=== PATIENT | male | born 1980 | race Caucasian/White ===

== ENCOUNTER 2023-04-30 14:12 | Inpatient (IN) | payer MEDICAID, SELFPAY ==
[2023-04-30] VITALS (11 sets, daily range): BP systolic 123–153; BP diastolic 77–97; PULSE 96–116; RESP 13–19; TEMP 37.1; O2SAT 97–99; BMI 26.4
--- NOTE | 2023-04-30 14:12 | CT_ITS ---
PROCEDURE: CT GUIDED percutaneous cholecystostomy placement. DATE: April 30, 2023. INDICATION: Male, 43 years old. Acute cholecystitis. PHYSICIAN: Shashi Lobato M.D. RADIATION DOSAGE (If Supplied By Facility): CTDIvol = ( 20 ) mGy, DLP = ( 591.23 ) mGycm. Individualized dose optimization techniques were utilized. PROCEDURE: The risks, benefits, and alternatives to the procedure were explained to the patient. The specific risk of hemorrhage requiring further treatment or intervention was detailed and accepted. Follow-up instructions were discussed with the patient as well. Written informed consent was obtained. The patient was brought into the CT suite and placed in the supine position. . An appropriate entry site was identified. The overlying skin was prepped and draped in the usual sterile fashion. 1% lidocaine was administered subcutaneously for local anesthesia. Conscious sedation was performed. The patient received 2 mg of Versed and 100 mcg of fentanyl intravenously. Conscious sedation was started at 3:15 PM and terminated at 3:40 PM. The patient was independently monitored by the department nurse. Under CT guidance, a 8 Citizen [place] percutaneous cholecystostomy tube was placed within the gallbladder lumen. 50 cc of dark brown fluid was aspirated. The specimens were then placed in the appropriate fluid and transported to the laboratory for analysis. Hemostasis was obtained. The patient tolerated the procedure well without immediate complications. CT/CT Guidance Abscess Drg w/Cath IMPRESSION: Successful CT guided percutaneous colostomy utilizing an 8 [place] percutaneous drainage catheter., as described above. The patient tolerated the procedure well. Conscious sedation protocol was followed. Electronically Signed: Shashi Lobato MD at 8:34 EST ,
[2023-04-30 15:01] LABS: International Normalized Ratio 1.7; Partial Thromboplast Time 37.4 Seconds (24.1-36.2); Prothrombin Time (Protime)PT. 19.8 SECONDS (11.7-14.9)
[2023-04-30] MEDS: Midazolam 2 MG/2 ML Syringe IV (15:15)
[2023-04-30] MEDS: 0.9% Normal Saline (1000mL) 1,000 ML 100 ML IV (15:15)
[2023-04-30] MEDS: fentaNYL 100 MCG/2 ML Ampul IV ×3 (15:18→15:40)
--- NOTE | 2023-04-30 15:25 | HP.PCM.SX_ITS ---
HPI - General General Date of Admission: 04/30/23 HPI Narrative BRANDY KISER, is a 43 M who presents with right upper quadrant pain of 4 days duration. The patient was transferred from outside hospital. Patient reports that he has been having pain for 4 days in the right upper quadrant and had an episode similar to this a year ago for which she was seen in the emergency room but never followed up. Patient reports nausea as well as vomiting. He says he is needing her drink anything in 4 days. He also reports chills. PFSH Allergy/AdvReac Type Severity Reaction Status Date / Time No Known Allergies Allergy Verified 04/30/23 14:13 Social History Smoking Status: Current every day smoker tobacco type: cigarettes ROS Constitutional Constitutional: Reports chills and fatigue; Denies fever(s) Eyes Eyes: Denies blurry vision ENT HEENT: Denies abnormal hearing Cardiovascular Cardiovascular: Denies chest pain Respiratory/Chest Respiratory/Chest: Denies cough or dyspnea Gastrointestinal Gastrointestinal: Reports abdominal pain, nausea and vomiting; Denies constipation Genitourinary Genitourinary: Denies change in urinary stream Musculoskeletal Musculoskeletal: Denies abnormal gait or back pain Integumentary Integumentary: Denies jaundice Neurologic Neurologic: Denies abnormal gait Psychiatric Psychiatric: Denies anxiety Hematologic/Lymphatic Hematologic/Lymphatic: Denies easy bleeding Vital Signs Vital Signs Vital Signs: 04/30/23 14:52 Respiratory Effort Normal Non-Labored Respiratory Pattern Normal Physical Exam Const oriented x3 and no apparent distress Resp normal respiratory effort Cardio regular rate and regular rhythm GI soft to palpation Palpation: tender RUQ Extremity normal to inspection Results Lab / Micro Data Labs: Laboratory Results - last 24 hr 04/30/23 14:44: PT 19.8 H, INR 1.7, APTT 37.4 H Assessment & Plan Assessment/Plan (1) Acute cholecystitis due to biliary calculus: PLAN: The patient had a CT scan which showed a lot of inflammation in the right upper quadrant. He also had an ultrasound that showed cholelithiasis. Patient had a white count of 25 this morning at outside hospital and was then transferred here due to insurance reasons. I discussed his diagnosis with him. There is a lot of inflammation and this has been going on for over 4 days now. The patient was very hesitant about surgery and did not want surgery now and would like it electively. I informed him that the only way I would do elective surgery would be if he went home on oral antibiotics and had a cholecystostomy tube placed to cool down the gallbladder. He wanted just antibiotics and to come back electively but I do not think that would be safe. I did offer him laparoscopic cholecystectomy but the patient is turning that down at this time. I discussed cholecystostomy tube with him and I discussed that he would have this drain in place for at least a month. Patient understands and wanted cholecystostomy tube placed. I will have this ordered and placed by radiology. I will start clear liquids afterwards and keep him on IV antibiotics. Recheck labs in the morning. Morris Gonzales MD Pager: [facility] [address] [place] [address], [address] [place] [address] Office:
[2023-04-30] MEDS: Lidocaine 2% (20 ml mdv) 20 ML Vial INFILT (15:30)
[2023-04-30] MEDS: Piperacil/Tazobactam 3.375 GM in 0.9% Normal Saline (50mL MB+) 50 ML IV ×2 (16:53→22:44)
[2023-04-30] MEDS: 0.9% Normal Saline (250mL Bag) 250 ML 15 ML IV (23:22)
[2023-05-01 02:19] VITALS: BP 136/86; PULSE 102; RESP 16; TEMP 36.7; O2SAT 99
[2023-05-01] MEDS: Morphine 2 MG/ML Syringe IV ×2 (02:22→18:24)
[2023-05-01] MEDS: Piperacil/Tazobactam 3.375 GM in 0.9% Normal Saline (50mL MB+) 50 ML IV ×3 (05:46→21:28)
[2023-05-01] MEDS: 0.9% Normal Saline (1000mL) 1,000 ML 100 ML IV (05:46)
[2023-05-01 07:09] LABS: Absolute Lymphocyte Count 1.23 X10^3/uL (0.83-4.51); Absolute Neutrophil Count 9.5 X10^3/uL (2.0-7.7); Basophil# 0.06 X10^3/uL; Basophil% 0.5 % (0-1); Eosinophil# 0.25 X10^3/uL; Eosinophils% 2.1 % (0-5); Hematocrit 40.8 % (40-54); Hemoglobin 13.7 g/dL (13.0-16.5); Lymphocyte # 1.23 X10^3/ul (0.83-4.51); Lymphocyte % 10.1 % (19-41); Mean Corp Hgb Conc 33.6 g/dL (32-36); Mean Corpuscular Hgb 31.6 pg (27.0-32.0); Monocyte# 1.05 X10^3/uL; Monocyte% 8.6 % (0-10); NRBC Flagged by Analyzer 0 % (0-5); Neutrophil % 77.9 % (47-70); Platelet Count 293 K/mm3 (150-450); RBC Distribution Width CV 12.5 % (11.6-14.6); RBC Distribution Width SD 43.3 fl (35.1-43.9); Red Blood Count 4.34 M/mm3 (4.6-6.2); White Blood Count 12.2 K/mm3 (4.4-11.0)
[2023-05-01 07:50] LABS: ALB/GLOB Ratio 0.6 RATIO (0.9-2.4); AST(SGOT) 293 U/L (15-37); Alanine Aminotransfer ALT/SGPT 662 U/L (16-61); Albumin, Serum 2.6 g/dL (3.2-5.0); Alkaline Phosphatase 206 U/L (45-117); Anion Gap 6 (5-15); BUN 9 mg/dL (7-18); BUN/Creat Ratio 11.8 RATIO (10-20); Calcium,Total 8.6 mg/dL (8.5-10.1); Chloride 104 mmol/L (98-107); Creatinine, Serum 0.76 mg/dL (0.70-1.30); EST Glomerular Filtration Rate 118 mL/min (>60); Est Glom Filt Rate - Afr Amer 143 mL/min (>60); Estimated Creatinine Clearance 136.14 ml/min; Globulin 4.2 g/dL (2.2-4.2); Glucose 92 mg/dL (74-106); Potassium 3.9 mmol/L (3.5-5.1); Protein, Total 6.8 g/dL (6.4-8.2); Sodium Level 136 mmol/L (136-145)
[2023-05-01 09:00] VITALS: BP 130/78; PULSE 91; RESP 14; TEMP 37.1; O2SAT 97
--- NOTE | 2023-05-01 09:43 | MRI_ITS ---
STUDY: MRI ABDOMEN WITHOUT CONTRAST REASON FOR EXAM: Male, 43 years old. mrcp, ABDOMINAL PAIN, DRAIN TUBE IN PLACE TECHNIQUE: Standardized fat and water weighted pulse sequences were obtained in all 3 orthogonal planes. COMPARISON: CT 04/29/2023 FINDINGS: Tiny bilateral pleural effusions with some bibasilar atelectasis. Cardiomegaly with small pericardial effusion. Small amount of ascites. Normal liver. Percutaneous cholecystostomy tube. Small stones in the dependent portion of the gallbladder. Gallbladder wall thickening and surrounding edema consistent with acute cholecystitis. Normal spleen. Normal pancreas. Normal bilateral adrenal glands. Normal right kidney. Normal left kidney. Normal visualized stomach. Normal small intestine. Normal colon. The appendix is visualized and appears normal. Normal abdominal aorta. Normal inferior vena cava. Normal retroperitoneum. Normal abdominal wall. Normal osseous structures. MRI/Abdomen without Contrast IMPRESSION: Cholelithiasis with acute cholecystitis with a percutaneous cholecystostomy tube. Electronically Signed: Escobar Dubose MD at 19:28 EST ,
--- NOTE | 2023-05-01 10:31 | PN.SURG_ITS ---
Subjective Subjective Patient had cholecystostomy tube placed yesterday afternoon. He tolerated clears after this. Objective Data Objective Data Vital Signs: Vital Signs Temp Pulse Resp BP Pulse Ox O2 Del Method 98.7 F 91 14 130/78 H 97 Room Air 05/01/23 09:00 05/01/23 09:00 05/01/23 09:00 05/01/23 09:00 05/01/23 09:00 05/01/23 09:00 Oxygen Delivery Method Room Air Weight: 195 lb 5.273 oz Body Mass Index (BMI) 26.4 Intake & Output: Intake and Output for Last 24 Hours 04/29/23 04/30/23 05/01/23 23:59 23:59 23:59 Intake Total 150.5 / 150.5 1350 / 1350 Output Total 50 / 50 Balance 100.5 / 100.5 1350 / 1350 Lab / Micro Data 05/01/23 06:40 05/01/23 06:40 Labs: Laboratory Results - last 24 hr 04/30/23 14:44: PT 19.8 H, INR 1.7, APTT 37.4 H 05/01/23 06:40: WBC 12.2 H, RBC 4.34 L, Hgb 13.7, Hct 40.8, MCV 94.0, MCH 31.6, MCHC 33.6, RDW Std Deviation 43.3, RDW Coeff of Jenni 12.5, Plt Count 293, MPV 10.0, Immature Gran % (Auto) 0.800, Neut % (Auto) 77.9 H, Lymph % (Auto) 10.1 L, Gregory % (Auto) 8.6, Eos % (Auto) 2.1, Baso % (Auto) 0.5, Absolute Neuts (auto) 9.5 H, Absolute Lymphs (auto) 1.23, Nucleated RBC % 0, Sodium 136, Potassium 3.9, Chloride 104, Carbon Dioxide 26.0, Anion Gap 6, BUN 9, Creatinine 0.76, Estim Creat Clear Calc 136.14, Est GFR (MDRD) Af Amer 143, Est GFR (MDRD) Non-Af 118, BUN/Creatinine Ratio 11.8, Glucose 92, Calcium 8.6, Total Bilirubin 2.80 H, AST 293 H, ALT 662 H, Alkaline Phosphatase 206 H, Total Protein 6.8, Albumin 2.6 L, Globulin 4.2, Albumin/Globulin Ratio 0.6 L Radiography Diagnostic Testing: Radiology Impression Abscess Drainage CT 04/30/23 14:12 IMPRESSION: Successful CT guided percutaneous colostomy utilizing an 8 [place] percutaneous drainage catheter., as described above. The patient tolerated the procedure well. Conscious sedation protocol was followed. Electronically Signed: Shashi Lobato MD at 8:34 EST , Physical Exam Const oriented x3 Resp normal respiratory effort GI soft to palpation Palpation: tender Assessment & Plan Assessment/Plan (1) Acute cholecystitis due to biliary calculus: PLAN: The patient had cholecystostomy tube placed yesterday afternoon. The patient's white count decreased today. His LFTs however increased. There is not any bile coming out of the drain either. I would like to order an MRCP today. I will also keep him overnight and recheck LFTs in the morning. Morris Gonzales MD Pager: [facility] [address] [place] [address], [address] [place] [address] Office:
[2023-05-01 14:00] VITALS: BP 121/75; PULSE 87; RESP 14; TEMP 36.8; O2SAT 96
[2023-05-01] MEDS: 0.9% Saline Lock 10 ML Syringe IV (18:24)
[2023-05-01 20:37] VITALS: BP 143/84; PULSE 84; RESP 16; TEMP 37.1; O2SAT 100
[2023-05-02] MEDS: 0.9% Normal Saline (1000mL) 1,000 ML 100 ML IV (00:25)
[2023-05-02 03:35] VITALS: BP 128/70; PULSE 85; RESP 16; TEMP 37.1; O2SAT 98
[2023-05-02] MEDS: Piperacil/Tazobactam 3.375 GM in 0.9% Normal Saline (50mL MB+) 50 ML IV (05:24)
[2023-05-02 07:53] VITALS: O2SAT 93
[2023-05-02 08:00] VITALS: BP 119/76; PULSE 77; RESP 14; TEMP 36.8; O2SAT 97
[2023-05-02 08:46] LABS: Absolute Lymphocyte Count 1.41 X10^3/uL (0.83-4.51); Absolute Neutrophil Count 5.2 X10^3/uL (2.0-7.7); Basophil# 0.08 X10^3/uL; Eosinophil# 0.23 X10^3/uL; Hematocrit 38.9 % (40-54); Lymphocyte # 1.41 X10^3/ul (0.83-4.51); Lymphocyte % 18.4 % (19-41); Mean Corp Hgb Conc 33.4 g/dL (32-36); Mean Corpuscular Hgb 31.4 pg (27.0-32.0); Monocyte# 0.69 X10^3/uL; NRBC Flagged by Analyzer 0 % (0-5); Neutrophil # 5.18 X10^3/uL (2.7-7.7); Neutrophil % 67.8 % (47-70); Platelet Count 321 K/mm3 (150-450); RBC Distribution Width CV 12.7 % (11.6-14.6); RBC Distribution Width SD 44.3 fl (35.1-43.9); Red Blood Count 4.14 M/mm3 (4.6-6.2); White Blood Count 7.7 K/mm3 (4.4-11.0)
[2023-05-02 09:11] LABS: ALB/GLOB Ratio 0.6 RATIO (0.9-2.4); AST(SGOT) 205 U/L (15-37); Alanine Aminotransfer ALT/SGPT 504 U/L (16-61); Albumin, Serum 2.4 g/dL (3.2-5.0); Alkaline Phosphatase 233 U/L (45-117); Anion Gap 6 (5-15); BUN 8 mg/dL (7-18); BUN/Creat Ratio 12.2 RATIO (10-20); Calcium,Total 8.2 mg/dL (8.5-10.1); Chloride 106 mmol/L (98-107); Creatinine, Serum 0.66 mg/dL (0.70-1.30); EST Glomerular Filtration Rate 140 mL/min (>60); Est Glom Filt Rate - Afr Amer 170 mL/min (>60); Estimated Creatinine Clearance 156.77 ml/min; Globulin 4.1 g/dL (2.2-4.2); Glucose 95 mg/dL (74-106); Potassium 3.8 mmol/L (3.5-5.1); Protein, Total 6.5 g/dL (6.4-8.2); Sodium Level 138 mmol/L (136-145)
--- NOTE | 2023-05-02 10:00 | PCM.PN.SRG ---
Subjective Subjective Patient reports his pain is improving. He had no issues overnight. Objective Data Objective Data Vital Signs: Vital Signs Temp Pulse Resp BP Pulse Ox O2 Del Method 98.3 F 77 14 119/76 97 Room Air 05/02/23 08:00 05/02/23 08:00 05/02/23 08:00 05/02/23 08:00 05/02/23 08:00 05/02/23 08:00 Oxygen Delivery Method Room Air Weight: 195 lb 5.273 oz Body Mass Index (BMI) 26.4 Intake & Output: Intake and Output for Last 24 Hours 04/30/23 05/01/23 05/02/23 23:59 23:59 23:59 Intake Total 150.5 / 150.5 2072. / 2072.33 601.67 / 601.67 Output Total 50 / 50 Balance 100.5 / 100.5 2072. / 2072. 601.67 / 601.67 Lab / Micro Data 05/02/23 08:10 05/02/23 08:10 Labs: Laboratory Results - last 24 hr 05/02/23 08:10: WBC 7.7, RBC 4.14 L, Hgb 13.0, Hct 38.9 L, MCV 94.0, MCH 31.4, MCHC 33.4, RDW Std Deviation 44.3 H, RDW Coeff of Jenni 12.7, Plt Count 321, MPV 10.0, Immature Gran % (Auto) 0.800, Neut % (Auto) 67.8, Lymph % (Auto) 18.4 L, [place] % (Auto) 9.0, Eos % (Auto) 3.0, Baso % (Auto) 1.0, Absolute Neuts (auto) 5.2, Absolute Lymphs (auto) 1.41, Nucleated RBC % 0, Sodium 138, Potassium 3.8, Chloride 106, Carbon Dioxide 26.0, Anion Gap 6, BUN 8, Creatinine 0.66 L, Estim Creat Clear Calc 156.77, Est GFR (MDRD) Af Amer 170, Est GFR (MDRD) Non-Af 140, BUN/Creatinine Ratio 12.2, Glucose 95, Calcium 8.2 L, Total Bilirubin 1.50 H, AST 205 H, ALT 504 H, Alkaline Phosphatase 233 H, Total Protein 6.5, Albumin 2.4 L, Globulin 4.1, Albumin/Globulin Ratio 0.6 L Radiography Diagnostic Testing: Radiology Impression Abdomen MRI 05/01/23 09:43 IMPRESSION: Cholelithiasis with acute cholecystitis with a percutaneous cholecystostomy tube. Electronically Signed: Escobar Dubose MD at 19:28 EST , Physical Exam Const oriented x3 and no apparent distress Resp normal respiratory effort GI soft to palpation Palpation: tender Assessment & Plan Assessment/Plan (1) Acute cholecystitis due to biliary calculus: PLAN: The patient had elevated LFTs yesterday. He had an MRCP yesterday afternoon that did not show any dilation or stones in the bile duct. It showed that the drain is in the gallbladder. The patient reports improvement in pain and no nausea vomiting overnight. I will advance him to a regular diet today and if he tolerates this I will discharge him home on oral antibiotics. The patient has normal white count today and his LFTs are downtrending. Morris Gonzales MD Pager: [facility] [address] [place] [address], [address] [place] [address] Office:
--- NOTE | 2023-05-02 11:43 | CASEMGMT ---
TAZ JOHNSON Assessment: Face to Face with pt for initial transition planning/care coordination assessment. RN ELIZABETH introduced self and role at [facility], pt voices understanding and consents to assessment. Pt is A&O x4 and answers all questions appropriately at this time. Pt lying in bed in no distress. Care providers, pharmacy, and demographics verified/updated. Admitting Dx: acute cholecystitis PCP:Pt denies. Pt declines a list of local healthcare providers. Specialists:Denies Preferred Pharmacy:[facility] Insurance: [employer] Prescription Benefit: yes LNOK: Tierra Mims, mother Living Arrangements: Pt lives with parents in a two story home with no steps to enter. Pt reports he is I in ADL's and denies concerns at home. Transportation: Pt drives self and denies concerns with transportation. DME:shower seat, pt states he has DME available if needed HHC/SNF: Pt denies hx of Pt states no concerns with going home at time of dc. Pt states he will be able to care for his drain. Pt states no further concerns/needs. CM to follow. Advised pt to ask CM if any further question/concerns/needs arise, voices understanding. Pt Goal: Home Plan: Home
[2023-05-02] MEDS: metroNIDAZOLE 500 MG Tablet PO (15:16)
--- NOTE | 2023-05-02 15:24 | PCM.DC.SUM ---
Providers Date of Admission: 05/01/23 Primary Care Physician: No Primary Care Phys Reason For Visit: ACUTE CHOLECYSTITIS Diagnosis Discharge Diagnosis (1) Acute cholecystitis due to biliary calculus: Status: Acute Code(s): K80.00 - Calculus of gallbladder with acute cholecystitis without obstruction Plan: The patient had elevated LFTs yesterday. He had an MRCP yesterday afternoon that did not show any dilation or stones in the bile duct. It showed that the drain is in the gallbladder. The patient reports improvement in pain and no nausea vomiting overnight. I will advance him to a regular diet today and if he tolerates this I will discharge him home on oral antibiotics. The patient has normal white count today and his LFTs are downtrending. Morris Gonzales MD Pager: [facility] [address] [place] [address], [address] [place] [address] Office: Medications at Discharge Home Medications acetaminophen 325 mg tablet 650 mg (2 x 325 mg) PO Q4H PRN PRN Pain 1-10 Or Fever #0 tabs 05/02/23 amoxicillin 500 mg-potassium clavulanate 125 mg tablet (Augmentin) 1 tab PO BID 10 days #20 tabs 05/02/23 ibuprofen 600 mg tablet 600 mg PO Q6H PRN PRN Pain 1-10 Or Fever #0 tabs 05/02/23 oxycodone 5 mg tablet 5 - 10 mg (1 - 2 x 5 mg) PO Q4H PRN PRN Pain Score 4-10 5 days #20 tabs 05/02/23 Hospital Course Summary of Care Provided Hospital Course: Patient was transferred from outside hospital severe acute cholecystitis. The following day he had percutaneous cholecystostomy tube placed. The morning after this he was feeling well but his liver enzymes increased. He had an MRCP performed which did not show any stones in the duct. The following day he was transitioned to oral antibiotics and a regular diet and discharged home with cholecystostomy tube in place with plans for interval cholecystectomy in the future. Weight / BMI Weight Weight: 195 lb 5.273 oz Body Mass Index (BMI) 26.4 ABG / Lab / Microbiology Data 05/02/23 08:10 05/02/23 08:10 Laboratory: Laboratory Results - last 24 hr 05/02/23 08:10: WBC 7.7, RBC 4.14 L, Hgb 13.0, Hct 38.9 L, MCV 94.0, MCH 31.4, MCHC 33.4, RDW Std Deviation 44.3 H, RDW Coeff of Jenni 12.7, Plt Count 321, MPV 10.0, Immature Gran % (Auto) 0.800, Neut % (Auto) 67.8, Lymph % (Auto) 18.4 L, [place] % (Auto) 9.0, Eos % (Auto) 3.0, Baso % (Auto) 1.0, Absolute Neuts (auto) 5.2, Absolute Lymphs (auto) 1.41, Nucleated RBC % 0, Sodium 138, Potassium 3.8, Chloride 106, Carbon Dioxide 26.0, Anion Gap 6, BUN 8, Creatinine 0.66 L, Estim Creat Clear Calc 156.77, Est GFR (MDRD) Af Amer 170, Est GFR (MDRD) Non-Af 140, BUN/Creatinine Ratio 12.2, Glucose 95, Calcium 8.2 L, Total Bilirubin 1.50 H, AST 205 H, ALT 504 H, Alkaline Phosphatase 233 H, Total Protein 6.5, Albumin 2.4 L, Globulin 4.1, Albumin/Globulin Ratio 0.6 L Radiography Diagnostic Testing: Radiology Impression Abdomen MRI 05/01/23 09:43 IMPRESSION: Cholelithiasis with acute cholecystitis with a percutaneous cholecystostomy tube. Electronically Signed: Escobar Dubose MD at 19:28 EST , D/C Instructions Discharge Diet: Light diet - advance as tolerated Discharge Activity: Return to Normal Activity Lifting Restrictions: 15 lbs for 1 week Call your doctor if your incision/area has: Continuous Slow Oozing, Sudden Increased Bleeding, Increased Pain/ Swelling, Increased Redness, Foul Smelling Discharge and Swelling at the incision site Call your doctor if you observe: Fever of 101 or Higher Change Dressing in: As needed Cleanse incision/area with: Soap & Water Please Follow Up With: Morris Gonzales MD When: Please call to schedule 2 week follow up appointment. [phone] Meaningful Use Info Meaningful Use Diagnoses (Choose all that apply): None applicable Discharge Plan Admission Admit Date/Time: 05/01/23 16:45 Attending Provider: Morris Gonzales Primary Care Provider: Care Physician,No Primary Instructions Patient Instructions: Santos Graf Drain Tube Dc, Post Op Drain Emptying Steps Discharge Orders/Prescriptions Prescriptions: New acetaminophen 325 mg Tablet 650 mg PO Q4H PRN PRN (Reason: Pain 1-10 Or Fever) Qty: 0 0RF ibuprofen 600 mg Tablet 600 mg PO Q6H PRN PRN (Reason: Pain 1-10 Or Fever) Qty: 0 0RF amoxicillin-pot clavulanate [Augmentin] 500-125 mg tablet 1 tab PO BID 10 Days Qty: 20 0RF oxycodone 5 mg Tablet 5 - 10 mg PO Q4H PRN PRN (Reason: Pain Score 4-10) 5 Days Qty: 20 0RF Referrals / Follow Up: Care Physician,No Primary [Primary Care Provider] - Disposition Disposition (needs filled in before D/C Order can be placed): Home, Self Care
--- NOTE | 2023-05-02 15:25 | NURSING ---
PT REFUSING CIPRO BECAUSE HIS MOM SAID IT KILLS ALL KINDS OF STUFF. TALKING TO HIS MOM, SHE SAID SOMEONE HAD TOLD HER NOT TO TAKE CIPRO BECAUSE OF THE SIDE EFFECTS, THEN WENT ON TO SAY THAT SHE HAD BAD SIDE EFFECTS FROM AN ANTIBIOTIC BUT WASNT SURE WHAT IT WAS. THEY ARE REQUESTING A SUBSITUTE FOR THE CIPRO. THIS NURSE EXPLAINED THAT ALL MEDS CAN HAVE SIDE EFFECTS AND EVERYONE IS DIFFERENT, IF HE IS WORRIED ABOUT SIDE EFFECTS, TAKING IT IN THE HOSPITAL WOULD BE THE TIME. CIPRO HANDOUT GIVEN AND OFFERED TO HAVE PHARMACY COME UP AND TALK TO THEM ABOUT THE MED. THE OTHER OPTION, AFTER TALKING TO DR KUMAR, AND NOT HIS FIRST CHOICE AND NOT RECOMMENDED D/T GREATER POSSIBILITY OF SIDE EFFECTS, IS AUGMENTIN. PTS MOTHER STILL PREFERS TO GO WITH THE AUGMENTIN, DR KUMAR AWARE.
[2023-05-02 15:30] VITALS: BP 131/86; PULSE 79; RESP 15; TEMP 36.6; O2SAT 100
== END 2023-05-02 16:50 | disposition home or self-care (01) | DRG 446 ==
PROVIDERS: Admitting Provider Surgery; Referring Provider Surgery; Visit Provider Surgery
DX: K80.00 Calculus of gallbladder with acute cholecystitis without obstruction (principal); F17.210 Nicotine dependence, cigarettes, uncomplicated
CPT/HCPCS: 36415; 74181; 75989; 80053; 85025; 85610; 85730; 99156; J7030; J7050; A4216

== ENCOUNTER 2023-06-25 08:00 | Outpatient (CLI) | payer MEDICAID, SELFPAY ==
--- NOTE | 2023-06-25 06:34 | EKG12_ITS ---
Test Reason : PRE-OP Blood Pressure : / mmHG Vent. Rate : 099 BPM Atrial Rate : 099 BPM P-R Int : 134 ms QRS Dur : 106 ms QT Int : 364 ms P-R-T Axes : 061 094 051 degrees QTc Int : 467 ms Normal sinus rhythm Normal ECG No previous ECGs available Confirmed by REN GABRIEL, MAYURI ([id number]), editor book SUSANA ALBERT ([id number]) on 06/27/2023 9:33:51 AM Referred By: STACY Confirmed By:MAYURI MCCLURE MD
--- NOTE | 2023-07-05 11:52 | EKG12_ITS ---
Test Reason : PRE-OP Blood Pressure : / mmHG Vent. Rate : 091 BPM Atrial Rate : 091 BPM P-R Int : 136 ms QRS Dur : 104 ms QT Int : 364 ms P-R-T Axes : 066 098 064 degrees QTc Int : 447 ms Normal sinus rhythm Normal ECG When compared with ECG of 25-JUN-2023 06:34, No significant change was found Confirmed by REN GABRIEL, MAYURI ([id number]), loan expeditor SARAH VALLES ([id number]) on 07/06/2023 1:35:52 PM Referred By: Morris Gonzales Confirmed By:MAYURI MCCLURE MD
--- OUTSIDE RECORDS SUMMARY | 2023-08-15 23:00 | XMS RPT_ITS | CCD ---
Author Name Unknown Address [address] [place] [address] Organization [facility] Care Team Providers Care Recycling Center Operator Name Role Phone CALOS DUGAN Attending Unavailable CALOS DUGAN Primary Care Unavailable CALOS DUGAN Admitting Unavailable Results Test Name Value Interpretation Reference Range Facil ity Encounters Encounter Date Encounter Type Care Provider Facility Start: 04-29-2023 End: 04-30-2023 ambulatory CALOS DUGAN [facility] Procedures Date Procedure Procedure Detail Performing Clinician Start: 04-29-2023 Urinalysis CALOS Candelario Payers Date Payer Category Payer Unknown [id number] Unknown [id number] History and physical note 05-19-2023 Note Date & Type Note Facility 05-19-2023 [facility] HISTORY & PHYSICAL NAME ACCOUNT SEX AGE ADMIT DISCHARGE PT MED. RECORD# NUMBER DATE DATE TYPE RASHEL [id number] M 43 04/29/23 1 BRANDY [id number] ROOM: [facility] DATE OF : [birth year] DICTATING PHYSICIAN: Eusebio Scott CHIEF COMPLAINT: Abdominal pain, right upper quadrant. HISTORY OF PRESENT ILLNESS: The patient is a 43-year-old male who presents to [facility] for a 4 day history of right [...] wanting to pr (more content not included)... [facility] Discharge summary note 05-07-2023 Note Date & Type Note Facility 05-07-2023 [facility] DISCHARGE SUMMARY/TRANSFER NOTE NAME ACCOUNT SEX AGE ADMIT DISCHARGE PT MED. RECORD# NUMBER DATE DATE TYPE BRANDY KISER [id number] M 43 04/29/23 2 [id number] ROOM: 312 DATE OF : 1980 ATTENDING [...] to have insurance, which was not in [facility] panel. This morning, his white blood cell count has decreased somewhat, but is still 24,800. His initial liver panel and lipase were all within normal range. Final report on the CAT scan is pending. Ultrasound had shown cholelithiasis, gallbladder sludge, and thickened gallbladder wall, see reports. DISCHARGE INSTRUCTIONS/PLAN: He wishes to be transferred to [facility], which is in his provider panel, and I have discussed this patient with Dr. Gonzales, who had suggested just simply sending him directly to the emergency room at [facility], and then care will be provided. We will send accompanying hospital notes, ER notes, laboratories, CT, and ultrasound to accompany the patient. He had been maintained on intravenous antibiotics here. The patient appears to have stabilized, but needs further management medically and surgically. Dictated By: Calos Dugan MD 04/30/23 10:21 JOB #: [id number] Transcribed By: am 04/30/23 10:39 Electronically signed by: E-Sign Dr. Calos Dugan MD 05/07/23 10:30 Page 1 of 2 [facility]AND[facility] Discharge Summary/Transfer Note BRANDY KISER : 1980 Page 2 of 2 KISERBRANDY COHEN Discharge Summary/Transfer Note [facility] Summary Purpose Family History No Family [...] BE BASED ON THE PRIMARY CLINICAL RECORDS. [facility]. provides no warranty or guarantee of the accuracy or completeness of information in this document.
== END 2023-06-25 09:00 | disposition home or self-care (01) ==
LOC: PAT 08-15 13:41
PROVIDERS: Visit Provider Surgery
DX: Z01.818 Encounter for other preprocedural examination (principal)
CPT/HCPCS: 93005

== ENCOUNTER → 2023-07-20 | Outpatient (CLI) | payer MEDICAID, SELFPAY ==
--- OUTSIDE RECORDS SUMMARY | 2023-06-25 06:08 | XMS RPT_ITS | CCD ---
Author Name Unknown Address [address] [place] [address] Organization [facility] Care Team Providers Care Machine Burrer Name Role Phone CALOS DUGAN Attending Unavailable CALOS DUGAN Primary Care Unavailable CALOS DUGAN Admitting Unavailable Results Test Name Value Interpretation Reference Range Facil ity Encounters Encounter Date Encounter Type Care Provider Facility Start: 04-29-2023 End: 04-30-2023 ambulatory CALOS DUGAN [facility] Procedures Date Procedure Procedure Detail Performing Clinician Start: 04-29-2023 Urinalysis CALOS Candelario Payers Date Payer Category Payer Unknown [id number] Unknown [id number] History and physical note 05-19-2023 Note Date & Type Note Facility 05-19-2023 [facility] HISTORY & PHYSICAL NAME ACCOUNT SEX AGE ADMIT DISCHARGE PT MED. RECORD# NUMBER DATE DATE TYPE RASHEL [id number] M 43 04/29/23 1 BRANDY [id number] ROOM: [facility] DATE OF : 78 DICTATING PHYSICIAN: Eusebio Scott CHIEF COMPLAINT: Abdominal pain, right upper quadrant. HISTORY OF PRESENT ILLNESS: The patient is a 43-year-old male who presents to [facility] for a 4 day history of right upper quadrant abdominal pain. The patient states that he had an episode of this last year, and was seen here, but his pain improved and he was released and never had any further issues and so he did not followup with anyone. When asked why the patient did not come in sooner this time, the patient states it was because the pain was in a different place and states that the pain last year was in the epigastric, substernal area, and this time the pain is in the right upper abdomen. He denies eating anything greasy or spicy or anything much at all on that precipitated this. He has only had soup and liquids over the last several days. He has not been sleeping well because of the pain. The patient denies eating anything today, but did have some apple juice and water this morning. The patient presented today to the emergency department, and was found to have acute abdominal pain and was admitted for this reason. PAST MEDICAL HISTORY: The patient denies any other problems except for the above in the history of present illness. PAST SURGICAL HISTORY: Denies. MEDICATIONS: Denies. ALLERGIES: No known drug allergies. FAMILY HISTORY: The patient is accompanied by his sister here today. They state that there is some history in their aunts and maybe their sister having gallbladder issues. No other significant family history. SOCIAL HISTORY: The patient lives at home. He does admit to smoking about a half of a pack per day and some occasional chew tobacco. He also drinks rarely. He admits to occasional marijuana use. REVIEW OF SYSTEMS: Positive for nausea and abdominal pain, but no stool changes. He has been sweaty and not feeling well, but no fevers or chills that he knows of. The patient also is dealing with some sort of tooth infection earlier in the week. Ten point review of systems is otherwise negative except for the above in the history of present illness. Page 1 of 3 BRANDY KISER History & Physical BRANDY KISER :1980 PHYSICAL EXAMINATION GENERAL APPEARANCE: The patient is a 43-year-old male who appears in moderate distress from his abdominal pain. He is alert and oriented. VITAL SIGNS: Currently stable with a blood pressure of 150/90, pulse 91, respiratory rate 16, temperature 97.8. HEENT: Head is normocephalic and atraumatic. Eyes are nonicteric. Pupils are equal. NECK: Trachea is midline. No jugular venous distention. LUNGS: Clear to auscultation bilaterally. No wheezes or rhonchi. HEART: Regular rate and rhythm. No murmurs, gallops, or rubs. ABDOMEN: Abdomen has hypoactive bowel sounds. He is flat and is soft, but is focally tender in the right upper quadrant with guarding and likely a palpable gallbladder. EXTREMITIES: No clubbing, cyanosis, or edema. DIAGNOSTIC DATA: Laboratory values: White blood count is 29.5, of note, his white blood count was approximately 22,000 last year when he was here at the ER. Sodium was 130, chloride 94, glucose 132. Lipase, bilirubin, and liver function tests all within normal limits. Imaging: CT scan and ultrasound from this time reviewed including images and results. Results from last year were reviewed, and ultrasound showed sludge and stones at that time with possible early cholecystitis. This time, they are showing equivocal signs, but the CT scan does show surrounding inflammation. IMPRESSION: 1. Acute cholecystitis with cholelithiasis. 2. Leukocytosis. 3. Hyponatremia. PLAN: The patient has been started on IV Zosyn by the emergency department physician, who I spoke with earlier, Dr. Jordan. The patient was admitted up to the floor. He is up here now, and I have ordered normal saline to be given for the hyponatremia. The patient with significant abdominal pain, I have recommended surgery tonight as he is having a significant amount of pain. However, the patient is wanting to see if this will cool down with antibiotics and to give him an increased chance of having a laparoscopic procedure electively as an outpatient. The patient understands that he is at risk for becoming septic and that he is at risk for having to have an open procedure given the amount of inflammation seen on the CT scan with surrounding Page 2 of 3 BRANDY KISER History & Physical BRANDY KISER :1980 inflammation changes. Currently, the patient's nausea is improved with Zofran and his pain is lessened with the pain medicines, and he is not wanting to pr (more content not included)... [facility] Discharge summary note 05-07-2023 Note Date & Type Note Facility 05-07-2023 [facility] DISCHARGE SUMMARY/TRANSFER NOTE NAME ACCOUNT SEX AGE ADMIT DISCHARGE PT MED. RECORD# NUMBER DATE DATE TYPE BRANDY KISER [id number] M 43 04/29/23 2 [id number] ROOM: 312 DATE OF : 1980 ATTENDING PHYSICIAN: Calos Dugan FINAL DIAGNOSES: 1. Abdominal pain. 2. Leukocytosis. 3. Cholelithiasis. 4. Gallbladder sludge. PHYSICAL EXAMINATION: Currently, he is afebrile, has mild tachycardia at 87, respiratory rate 16 to 18, and blood pressure was 140/81 up to 175/93. Intake and output is incomplete. HOSPITAL COURSE: (see dictation emergency room notes from Dr. Jordan and see notes by Dr. Scott). Mr. Kiser was admitted via the emergency room with abdominal pain. He has a prior history of cholelithiasis and cholecystitis. He had a thickened gallbladder wall, but no surrounding fluid noted on the initial report. He had a marked leukocytosis and a left shift on differential. He was admitted and was found to have insurance, which was not in [facility] panel. This morning, his white blood cell count has decreased somewhat, but is still 24,800. His initial liver panel and lipase were all within normal range. Final report on the CAT scan is pending. Ultrasound had shown cholelithiasis, gallbladder sludge, and thickened gallbladder wall, see reports. DISCHARGE INSTRUCTIONS/PLAN: He wishes to be transferred to [facility], which is in his provider panel, and I have discussed this patient with Dr. Gonzales, who had suggested just simply sending him directly to the emergency room at [facility], and then care will be provided. We will send accompanying hospital notes, ER notes, laboratories, CT, and ultrasound to accompany the patient. He had been maintained on intravenous antibiotics here. The patient appears to have stabilized, but needs further management medically and surgically. Dictated By: Calos Dugan MD 04/30/23 10:21 JOB #: [id number] Transcribed By: am 04/30/23 10:39 Electronically signed by: E-Sign Dr. Calos Dugan MD 05/07/23 10:30 Page 1 of 2 [facility] Discharge Summary/Transfer Note BRANDY KISER : 1980 Page 2 of 2 [facility] Discharge Summary/Transfer Note [facility] Summary Purpose Family History No Family History Records Found Advance Directives No Advanced Directives Records Found Additional Source Comments (unrecognized sect ion and content) No Status Records Found INFORMATION SOURCE (unrecogn ized section and content) FOR RECORDS PERTAINING TO PATIENTS WHO ARE OR HAVE BEEN ENROLLED IN A CHEMICAL DEPENDENCY/SUBSTANCEABUSE PROGRAM, SOME INFORMATION MAY BE OMITTED. This clinical summary was aggregated from multiple sources. Caution should be exercised in using it in the provision of clinical care. This summary normalizes information from multiple sources, and as a consequence, information in this document may materially change the coding, format and clinical context of patient data. In addition, data may be omitted in some cases. CLINICAL DECISIONS SHOULD BE BASED ON THE PRIMARY CLINICAL RECORDS. [facility]. provides no warranty or guarantee of the accuracy or completeness of information in this document.
--- NOTE | 2023-06-25 06:33 | HP.PCM_ITS ---
History and Physical Date of Admission: 06/25/23 Intake Vital Signs 05/01/2314:52 Height 6 ft Intake Visit Reasons: GALLBLADDER 05-15 Chief Complaint: gallbladder f/u Detective Captain Required: No Is patient in pain?: No Allergies No Known Allergies Allergy (Verified 06/14/23 08:24) Subjective Details: Patient is a 43-year-old male here following up after hospitalization. He is doing well with no pain at this point. Objective Details: Abdomen is soft and nontender. Drain is serous Coding Level of Care Code Off vis,est,level 2 Diagnoses Acute cholecystitis due to biliary calculus K80.00 [facility] Social History Smoking Status: Current every day smoker tobacco type: cigarettes Assessment and Plan (No Qualifiers) Assessment and Plan (1) Acute cholecystitis due to biliary calculus: Status: Acute Plan: The patient had acute cholecystitis with severe inflammation. He elected not to have cholecystectomy and so a cholecystostomy tube was placed. He reports his symptoms have resolved and he is doing well. I will schedule him for laparoscopic cholecystectomy. I discussed the procedure in detail with the patient. I discussed the risks, benefits, and alternatives of the procedure. I discussed the risks including but not limited to bleeding, infection, injury to surrounding organs such as the liver, bile duct, bowels. I did discuss the possibility of having to convert to an open procedure as well as the possibility that if any injuries occurred this may necessitate further surgery at a tertiary care center. Morris Gonzales MD Pager: [facility] [address] [place] [address], [address] [place] [address] Office: I have examined the patient and the H&P has been reviewed. There are no clinical changes since date of exam.
[2023-07-05 11:47] VITALS: BP 133/87; PULSE 93; RESP 16; TEMP 36.6; O2SAT 100; BMI 25.1
[2023-07-05] MEDS: Lactated Ringers 1,000 ML 15 ML IV (12:12)
--- NOTE | 2023-07-05 12:14 | HP.PCM_ITS ---
History and Physical Date of Admission: 07/05/23 History and Physical Date of Admission: 06/25/23 Intake Vital Signs 05/01/2314:52 Height 6 ft Intake Visit Reasons: GALLBLADDER 05-15 Chief Complaint: gallbladder f/u Bag Hanger Required: No Is patient in pain?: No Allergies No Known Allergies Allergy (Verified 06/14/23 08:24) Subjective Details: Patient is a 43-year-old male here following up after hospitalization. He is doing well with no pain at this point. Objective Details: Abdomen is soft and nontender. Drain is serous Coding Level of Care Code Off vis,est,level 2 Diagnoses Acute cholecystitis due to biliary calculus K80.00 [facility] Social History Smoking Status: Current every day smoker tobacco type: cigarettes Assessment and Plan (No Qualifiers) Assessment and Plan (1) Acute cholecystitis due to biliary calculus: Status: Acute Plan: The patient had acute cholecystitis with severe inflammation. He elected not to have cholecystectomy and so a cholecystostomy tube was placed. He reports his symptoms have resolved and he is doing well. I will schedule him for laparoscopic cholecystectomy. I discussed the procedure in detail with the patient. I discussed the risks, benefits, and alternatives of the procedure. I discussed the risks including but not limited to bleeding, infection, injury to surrounding organs such as the liver, bile duct, bowels. I did discuss the possibility of having to convert to an open procedure as well as the possibility that if any injuries occurred this may necessitate further surgery at a tertiary care center. Morris Gonzales MD Pager: [facility] [address] [place] [address], [address] [place] [address] Office: . The patient's last surgery was postponed as the patient started having GI sy mptoms. He was having nausea vomiting and diarrhea. His surgery was canceled and now he is here for the rescheduled procedure. There are no changes from the prior exam.
== END | disposition home or self-care (01) ==
LOC: SDC 08:28 → PAT 13:34
PROVIDERS: Referring Provider Surgery; Visit Provider Surgery
DX: Z01.818 Encounter for other preprocedural examination (principal)
CPT/HCPCS: 93005; J7120; J2405

== ENCOUNTER 2024-08-08 14:53 | Observation (INO) | payer MEDICAID, SELFPAY ==
[2024-08-08] VITALS (15 sets, daily range): BP systolic 125–136; BP diastolic 68–93; PULSE 97–104; RESP 15–20; TEMP 36.3–37.3; O2SAT 93–98; BMI 26.7; BMI 28.2
[2024-08-08] MEDS: 0.9% Normal Saline (1000mL) 1,000 ML 15 ML IV (11:04)
[2024-08-08] MEDS: INDOCYANINE GREEN 3.75 MG in Syringe 1.5 ML 999 MG IV (11:15)
[2024-08-08 11:16] LABS: Hematocrit 42.8 % (40-54); Hemoglobin 14.1 g/dL (13.0-16.5); Mean Corp Hgb Conc 32.9 g/dL (32-36); Mean Corpuscular Hgb 30.9 pg (27.0-32.0); Mean Corpuscular Volume 93.7 fL (80-94); Mean Platelet Vol. 9.6 fl (6.2-12.0); Platelet Count 307 K/mm3 (150-450); RBC Distribution Width SD 44.7 fl (35.1-43.9); Red Blood Count 4.57 M/mm3 (4.6-6.2); White Blood Count 15.1 K/mm3 (4.4-11.0)
[2024-08-08 11:27] LABS: Amphetamine Urine NEGATIVE (<1000 ng/mL); Barbiturate Urine NEGATIVE (< 200 ng/mL); Benzodiazepine Urine NEGATIVE (< 200 ng/mL); Cocaine Urine NEGATIVE (< 300 ng/mL); Ecstacy Urine NEGATIVE (< 500 ng/mL); Methadone Urine NEGATIVE (< 300 ng/mL); Opiates Urine NEGATIVE (< 300 ng/mL); PCP Urine NEGATIVE (< 25 ng/mL); THC Urine POSITIVE (< 50 ng/mL); Vista UDS pH Range 6
--- NOTE | 2024-08-08 11:42 | PCM.PRE.AN2 ---
ASA Classification* ASA Classification ASA Classification: 2 Assessment & Plan Anesthesia* Anesthesia Assessment Anesthesia Assessment: Discussed sedation and/or anesthesia options, risks, benefits, and alternatives with patient/parents/legal guardian/POA. Questions invited. The patient/parents/legal guardian/POA seems to understand and agrees to proceed with anesthesia plan. Reviewed the physical assessment, medical history, allergy history and patient home medications list prior to surgery/procedure/anesthetic and documented any changes. Performed airway and anesthesia risk assessments. Anesthesia Type Anesthesia Type: General History Source History Obtained from:: Patient, Chart and - (mother) Anesthesia Focused Assessment* Temperature: 98.7 F Pulse Rate: 97 Blood Pressure: 129/85 Respiratory Rate: 16 Pulse Ox: 98 Oxygen Delivery Method: Room Air Airway Assessment Mouth opens: >3 cm Mallampati Score: III Teeth Condition: Chipped/Broken (many broken/chipped teeth) Neck Range of motion (ROM): Full ROM Focused Labs Anesthesia Preop lab: CBC WBC 15.1 K/mm3 (4.4-11.0) H 08/08/24 11:00 08/08/24 RBC 4.57 M/mm3 (4.6-6.2) L 08/08/24 11:00 08/08/24 Hgb 14.1 g/dL (13.0-16.5) 08/08/24 11:00 08/08/24 Hct 42.8 % (40-54) 08/08/24 11:00 08/08/24 Plt Count 307 K/mm3 (150-450) 08/08/24 11:00 08/08/24 CHEMISTRY Potassium 3.8 mmol/L (3.5-5.1) 05/02/23 08:10 05/02/23 Sodium 138 mmol/L (136-145) 05/02/23 08:10 05/02/23 BUN 8 mg/dL (7-18) 05/02/23 08:10 05/02/23 Creatinine 0.66 mg/dL (0.70-1.30) L 05/02/23 08:10 05/02/23 Glucose 95 mg/dL (74-106) 05/02/23 08:10 05/02/23 COAG PT 19.8 SECONDS (11.7-14.9) H 04/30/23 14:44 04/30/23 Pre-Assessment Diagnosis/Proposed Procedure Planned Operative Procedure(s): ROBOTIC CHOLEY WITH GRAMS Anesthesia History Anesthesia History - soft hat binder: Anesthesia History - soft hat binder Hx Hospitalization No 08/05/24 15:16 Any Problems With Anesthesia No 08/05/24 15:16 Cholinesterase deficiency No 08/05/24 15:16 You/Your Family Experience No 08/05/24 15:16 fever (hyperthermia) with Relationship Recent Exposure to Contagious No 08/08/24 11:01 Disease Does patient have nerve No 08/05/24 15:16 stimulator Patient instructed to have device shut off --Does patient have Pacemaker No 08/08/24 11:01 or ICD? When Was Last Pacemaker Check QUESTION #4 FULL TEXT: You/Your Family Experience fever (hyperthermia) with Anesthesia Last Oral Intake Last Oral intake: Last Oral Intake NPO since 20:30 08/08/24 11:01 Meds taken in AM with sips of water? Meds patient instructed to take am of surgery PONV PONV - soft hat binder: PONV - soft hat binder Female No 08/05/24 15:16 HX of Motion Sickness No 08/05/24 15:16 HX of N/V After Surgery No 08/05/24 15:16 Non-Smoker No 08/05/24 15:16 Duration of Surgery greater No 08/05/24 15:16 than 60 minutes Number of Risk Factors PONV Score Height & Weight Height & Weight: Anesthesia: Height & Weight Height 6 ft 08/08/24 11:01 Weight: 89.4 kg 08/08/24 11:01 Body Mass Index (BMI) 26.7 08/08/24 11:01 Respiratory Assessment Respiratory Assessment - soft hat binder: Respiratory Tract Infection Hx - soft hat binder Hx Respiratory Tract Infection No 08/05/24 15:16 STOP Sleep Apnea STOP Sleep Apnea - soft hat binder: STOP Sleep Apnea - soft hat binder Hx Hypertension No 08/05/24 15:16 Hx Sleep Apnea No 08/05/24 15:16 CPAP BIPAP Do you snore loudly (louder No 08/05/24 15:16 than talking or can be heard Do you often feel tired/ Yes 08/05/24 15:16 fatigued/ sleepy during daytime? Has anyone observed you stop No 08/05/24 15:16 breathing during sleep? STOP Results Negative 08/05/24 15:16 QUESTION #5 FULL TEXT : Do you snore loudly (louder than talking or can be heard through closed doors)? 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 Specify any problems Hx of Preganancy in last 3 N/A 08/05/24 15:16 Months Nurse Filling Out Transfusion DSCHRIBER 08/05/24 15:16 & Questions: Date: 08/05/24 08/05/24 15:16 Time: 15:18 08/05/24 15:16 Patient unable to answer at this time (ie. confused, unrespo /Reproduction History /Reproductive History - soft hat binder: /Reproductive Hx- soft hat binder Hx Now No 08/05/24 15:16 Gestational Age (in weeks): EDC: Hx Hx Para Hx Section SAB No 08/05/24 15:16 Active Medications Active Medications: Current Medications Generic Name Dose Route Start Last Admin Trade Name Freq PRN Reason Stop Dose Admin Cefotetan Disodium 2 gm/ 100 mls @ 200 mls/hr 08/08/24 12:00 Sodium Chloride IV 08/08/24 12:29 PREOP ONE Indocyanine Green 3.75 mg/ N/A 1.5 mls @ 999 mls/hr 08/08/24 12:00 08/08/24 11:15 IV 08/08/24 12:01 999 mls/hr PREOP ONE Administration Sodium Chloride 1,000 mls @ 15 mls/hr 08/08/24 10:50 08/08/24 11:04 IV 08/14/24 00:09 15 mls/hr .Q48H JADE Administration Protocol PFSH Medical History Poor historian Broken teeth PTSD (post-traumatic stress disorder) Depression Substance abuse Marijuana use Alcohol use Migraine headache Injury of head and neck Asthma Smoker Home Medications ?Medication ?Instructions ?Recorded ?Last Taken ?Type NK 08/08/24 Unknown History Allergy/AdvReac Type Severity Reaction Status Date / Time No Known Allergies Allergy Verified 08/08/24 11:01 Surgical History No history of previous surgery Social History Smoking Status: Current every day smoker tobacco type: cigarettes Review of Systems (Anesthesia) ROS Narrative System reviewed and no additional complaints, except as documented.
--- NOTE | 2024-08-08 11:53 | HP.PCM_ITS ---
History and Physical Date of Admission: 08/08/24 Intake Vital Signs 07/05/2411:16 07/18/2512:11 Height 6 ft 6 ft Weight: 196 lb BMI 26.6 BP 137/86 H Blood Pressure Location Rt brachial Position Sitting Respiration 17 Pulse 102 H Pulse Source Monitor Pulse Oximetry (%) 97 Oxygen Delivery Method room air Intake Visit Reasons: DISCUSS GALLBLADDER SURGERY/update H&P Chief Complaint: discuss gallbladder surgery Is patient in pain?: No Allergies No Known Allergies Allergy (Verified 07/18/24 13:13) Medications ?Medication ?Instructions ?Recorded ?Confirmed ?Type multivitamin (Daily Multi-Vitamin 1 tab PO DAILY 06/15/23 07/18/24 History tablet) [facility] Medical History Poor historian Broken teeth PTSD (post-traumatic stress disorder) Depression Substance abuse Marijuana use Alcohol use Migraine headache Injury of head and neck Asthma Smoker History of edema Surgical History No history of previous surgery Social History Smoking Status: Current every day smoker tobacco type: cigarettes HPI HPI HPI: Patient is a 44-year-old male here for cholecystectomy. The patient had a cholecystostomy tube placed in April 2023. He has been lost to follow-up and decided that he is ready for surgery. He says that he empties his cholecystostomy tube nightly. ROS General General: No weight change, appetite, fatigue, colon cancer, breast cancer or weakness HEENT HEENT: No difficulty swallowing, eye injury, eye surgery, swollen glands or hoarseness Endo Endocrine: No thyroid disease, diabetes mellitus, thyroid cancer, Hair loss, he at intolerance or cold intolerance Skin Skin: No rash or changing moles Musc Musculoskeletal: No back problems, arthritis, rheumatoid arthritis, gout or joint pain Cardio Cardiovascular: No murmur, pacemaker, heart disease, atrial fibrillation, high blood pressure, heart attack, heart stent, palpitations, shortness of breat with exertion or chest pain Psych Psychiatric: No depression, anxiety or hearing voices Resp Respiratory: No shortness of breath, No sleep apnea, No cough, No COPD, No asthma, No emphysema and No wheezing Gastro Gastrointestinal: Yes abdominal pain, No nausea or vomiting, No diarrhea, No constipation, No blood in stool, No acid reflux, No hemorrhoids, No ulcers, Yes gallbladder problem and No black,tarry stools Dar Hematologic: No blood thinners, No blood disorders, No bleeding, No anemia and No blood clots Neuro Neurologic: No system reviewed and no additional complaints, except as documented, No as per HPI, No abnormal gait, No abnormal hearing, No abnormal movements, No abnormal speech, No behavioral changes, No burning sensations, No confusion, No convulsions, No disequilibrium, No dizziness, No localized weakness, No frequent falls, No headache(s), No lack of coordination, No loss of vision, No memory loss, No numbness, No other visual disturbances, No radicular pain, No restless legs, No sensory deficit, No syncope, No tingling, No tremor(s), No weakness and No other Exam Const General: cooperative Orientation: alert and oriented x3 HENMT Head: normal to inspection Neck Neck: normal visual inspection and full ROM Chest Chest palpation & inspection: normal inspection of the chest Resp Effort & Inspection: normal respiratory effort Auscultation: clear to auscultation bilaterally Cardio Rate: regular rate Rhythm: regular rhythm GI Inspection: non-distended Palpation: soft and nontender Skin General: no rashes or lesions noted Neuro General: patient alert and patient oriented x3 Extrem General: full ROM Psych Appearance: grossly normal Mental Status: mental status grossly normal Assessment and Plan Assessment and Plan (1) Acute cholecystitis due to biliary calculus: Status: Acute Plan: The patient had acute cholecystitis over a year ago and has had a cholecystostomy tube ever since. He comes in today to discuss performing a cholecystectomy and removing the tube. I discussed robotic assisted laparoscopic cholecystectomy with cholangiograms with him. I discussed the risks including but not limited to bleeding, infection, injury other organs. Patient understands the risks and is willing to proceed. I also discussed possible partial cholecystectomy if it is too inflamed. Morris Gonzales MD Pager: [facility] [address] [place] [address], [address] [place] [address] Office: I have examined the patient and the H&P has been reviewed. There are no clinical changes since date of exam.
--- NOTE | 2024-08-08 12:35 | GALL_PTH ---
PATIENT: BRANDY KISER LOC: MS3 U#:[id number] AGE/SX: 44/M ROOM: MO317 RE08/08/[address]: Dr. Morris Gonzales MD : 1980 BED: 1 DIS: 08/09/2024 SPEC #: [id number] RECD: 08/08/24 17:00 STATUS: MIRNA TIAN #: [id number] DIXON: 08/08/24 12:[address]: Morris Gonzales DEPT: SURGICAL PATHOLOGY RECD BY: Kelsey Fontanez ENTERED: 08/11/24 07:48 SP TYPE: ALLISON CALDERON DR: No Primary Care Phys Tissues: Gallbladder, NOS Procedures: Surgery Specimen Level III HEADER OPERATION: Robotic partial cholecystectomy PRE-OP DIAGNOSIS: Acute cholecystitis due to biliary calculus TISSUE SUBMITTED: Gallbladder MICROSCOPIC DIAGNOSIS Gallbladder, partial cholecystectomy: Acute and chronic cholecystitis. See comment. 08/12/2024 COMMENT No stones are identified in the container. MICROSCOPIC DESCRIPTION Slides are reviewed. GROSS DESCRIPTION Received is one container labeled with the patient's name and designated gallbladder. The specimen consists of fragments of rubbery merida focally hemorrhagic tissue aggregating to 1.5cm. The largest fragment which measures 1.5 x 1.0 x 0.5cm in bisected. The specimen is submitted entirely in four fragments in one cassette. 08/11/2024 TC:2 CPT: 81490
[2024-08-08] MEDS: Cefotetan 2 GM in 0.9% Normal Saline (100mL MB+) 100 ML IV (13:25)
[2024-08-08] MEDS: Bupivacaine Mpf 0.5% 30 ML VIAL (14:26)
--- NOTE | 2024-08-08 14:36 | PCM.OPRPT ---
Operative Report (Standard) Operative Information Date of Procedure: 08/08/24 Pre-Operative Diagnosis: History of cholecystostomy tube and chronic cholecystitis Post-Operative Diagnosis: Same Surgery/Procedure Performed: Robotic assisted laparoscopic partial cholecystectomy float remover: Yes Bioinformatics Analyst: Thomas Milner Tasks completed by assistant operator: Opening and Closing Type of Anesthesia: General/Regional RN Documented Start/Stop Times: Operation Date: 08/08/24 12:35 Case Time Into Pre-Op 08/08/24 10:42 Out of Pre-Op 08/08/24 13:00 Anesthesia Start 08/08/24 13:03 Into Room 08/08/24 13:03 Procedure Start 08/08/24 13:24 Procedure End 08/08/24 14:30 Anesthesia End 08/08/24 14:35 Out of Room 08/08/24 14:35 Procedure Start Time: 13:24 Procedure Stop Time: 14:30 Select all DRAINS/GRAFTS/IMPLANTS that apply: Drains Drain details: LINUS to bulb suction Estimated Blood Loss: 20 Specimen collected: Yes Description of specimen(s) removed: Gallbladder Description of surgery: Patient was brought back to the operating room and general anesthesia was induced. The old cholecystostomy tube was removed. The abdomen was prepped and draped in usual sterile fashion. An incision was made in the left upper quadrant and deepened to the fascia. The fascia was grasped and elevated and Veress needle was placed into the abdomen and it was insufflated to 15 mmHg. Veress needle was removed and a port was placed. Camera was placed into the abdomen and was inspected. There were no injuries from entry. Patient was placed in reverse Trendelenburg position. Under direct visualization 3 more ports were placed and then the robot was docked. The patient had severe inflammation from the gallbladder to the anterior abdominal wall and this was taken down bluntly and sharply. The colon was taken down off of the gallbladder as well bluntly. Next the gallbladder was identified and taken off in a dome down fashion until the proximal one third of the gallbladder was reached and then it was removed. It was irrigated and suctioned dry. I was unable to reach the triangle of Calot due to the inflammation and risk of injury to the common bile duct. Partial cholecystectomy was accomplished. The area was irrigated and suctioned dry and hemostasis was obtained using electrocautery. Next a 15 [place] round drain was placed into the gallbladder fossa through the most lateral right arciniega port and then the port was removed and it was sutured to the skin using 4-0 nylon. The drain was placed into the gallbladder fossa. Next the robot was undocked and the ports were removed and the abdomen was allowed to desufflate. The bulb was placed to bulb suction. All the incisions were injected with local anesthetic and closed with interrupted 4-0 Monocryl sutures. Steri-Strips and bandages were applied. Patient tolerated the procedure well and will be admitted for observation. Surgical Findings: Very inflamed gallbladder Complications Complications: No Admit VTE Documentation VTE Mechan Device Prophylaxis: SCD's
--- NOTE | 2024-08-08 14:55 | DCINST_ITS ---
Discharge Instructions Procedure Gallbladder Diet Discharge Diet: Light diet - advance as tolerated Activity Discharge Activity: May Shower May shower in (days): 1 Lifting Restrictions: 20 lbs for 2 weeks Additional Activity Instructions:: Pain medication may cause nausea. You should typically eat light foods as you take your pain medications. Pain medication may also cause constipation. If this is a problem for you, please discuss with your doctor. Dressing / Incision Call your doctor if your incision/area has: Continuous Slow Oozing, Sudden Increased Bleeding, Increased Pain/ Swelling, Increased Redness and Foul Smelling Discharge Call your doctor if you observe: Fever of 101 or Higher Suture Line Care: Avoid Pulling/Pushing and Avoid Pinching/Bending Remove Dressing in: 2 days Additional Dressing/Incision Instructions:: Leave operative bandaids on for 2 days. When you remove dressing, leave Steri-Strips on until your follow-up appointment, or until the Steri-Strips fall off on their own. Follow Up Care Please Follow Up With: Morris Gonzales MD When: Please call to schedule 1 week follow up appointment. [phone] Test Results: Test results from this visit will be discussed in further detail at your follow- up appointment, if applicable. Discharge Plan Admission Attending Provider: Morris Gonzales Primary Care Provider: Care Physician,Adelaida Primary Instructions Print Language: Dominican Discharge Orders/Prescriptions Prescriptions: New acetaminophen 325 mg Tablet 650 mg PO Q4H PRN PRN (Reason: Pain 1-10 Or Fever) Qty: 0 0RF oxycodone 5 mg Tablet 5 - 10 mg PO Q4H PRN PRN (Reason: Pain Score 4-10) 5 Days Qty: 20 0RF Referrals / Follow Up: Care Physician,No Primary [Primary Care Provider] - Disposition Disposition (needs filled in before D/C Order can be placed): Home, Self Care
--- NOTE | 2024-08-08 15:29 | PCM.POSTANE2 ---
Anesthesia Postop Eval I Sum Anesthesia Postop Eval I Summary Anesthesia Postop Eval I Summary: Anesthesia Postop Eval I: Assessment Summary Airway patent Spontaneous unlabored respirations Mental status nausea Vomiting Anesthesia Postop Eval I: Fluid Summary Crystalloid volume administer (ml) Colloids volume administered ( ml) Blood Product volume administered (ml) Total IV fluid infused Anesthesia Postop Eval I: Summary Notes Anesthesia Complication Anesthesia Complication Comment: Post-operative progress note Anesthesia: Postop Eval II Evaluation Mental status: Awake Pain Level: 3 nausea: No Vomiting: No
--- NOTE | 2024-08-08 15:32 | PCM.POST.ANE ---
Anesthesia: Postop Eval I Current Vital Signs Temperature: 99.1 F (Unable to change timestamp time to 1434 on 08/08/2024. ) Pulse Rate: 102 Blood Pressure: 136/84 Respiratory Rate: 16 Pulse Ox: 95 Assessment Airway patent: Yes Spontaneous unlabored respirations: Yes nausea: No Vomiting: No Anesthesia Complication: No Fluid Hydration Crystalloid volume administer (ml): 1,000 Total IV fluid infused: 1,000 Progress Note Anesthesia document: Postop Eval 1 completed: Yes
[2024-08-08] MEDS: 0.9% Saline Lock 10 ML Syringe IV (16:09)
[2024-08-08] MEDS: 0.9% Normal Saline (1000mL) 1,000 ML 60 ML IV (16:09)
[2024-08-08] MEDS: oxyCODONE 5 MG Tablet PO ×2 (17:02→23:11)
[2024-08-08] MEDS: Acetaminophen 325 MG Tablet 650 MG PO ×2 (17:02→23:11)
[2024-08-08] MEDS: Morphine 2 MG/ML Syringe IV (20:10)
[2024-08-09 03:50] VITALS: BP 125/83; PULSE 81; RESP 18; TEMP 37.2; O2SAT 98
[2024-08-09] MEDS: Acetaminophen 325 MG Tablet 650 MG PO ×2 (04:07→10:07)
[2024-08-09] MEDS: oxyCODONE 5 MG Tablet PO ×2 (04:08→10:08)
[2024-08-09 06:51] VITALS: BP 126/82; PULSE 80; RESP 16; TEMP 36.7; O2SAT 97
[2024-08-09 07:18] LABS: Absolute Lymphocyte Count 1.05 X10^3/uL (0.83-4.51); Absolute Neutrophil Count 13.7 X10^3/uL (2.0-7.7); Basophil# 0.02 X10^3/uL; Basophil% 0.1 % (0-1); Hematocrit 36.1 % (40-54); Hemoglobin 11.9 g/dL (13.0-16.5); Lymphocyte # 1.05 X10^3/ul (0.83-4.51); Lymphocyte % 6.6 % (19-41); Mean Platelet Vol. 9.9 fl (6.2-12.0); Monocyte# 1.07 X10^3/uL; Monocyte% 6.7 % (0-10); NRBC Flagged by Analyzer 0 % (0-5); Neutrophil % 86.3 % (47-70); Platelet Count 293 K/mm3 (150-450); RBC Distribution Width CV 13.1 % (11.6-14.6); RBC Distribution Width SD 44.7 fl (35.1-43.9); Red Blood Count 3.84 M/mm3 (4.6-6.2); White Blood Count 15.9 K/mm3 (4.4-11.0)
[2024-08-09 08:22] LABS: ALB/GLOB Ratio 0.7 RATIO (0.9-2.4); AST(SGOT) 10 U/L (15-37); Alanine Aminotransfer ALT/SGPT 32 U/L (16-61); Albumin, Serum 2.9 g/dL (3.2-5.0); Alkaline Phosphatase 64 U/L (45-117); Anion Gap 5 (5-15); BUN 8 mg/dL (7-18); BUN/Creat Ratio 9.8 RATIO (10-20); Calcium,Total 9.2 mg/dL (8.5-10.1); Chloride 105 mmol/L (98-107); Creatinine, Serum 0.81 mg/dL (0.70-1.30); EST Glomerular Filtration Rate 109 mL/min (>60); Est Glom Filt Rate - Afr Amer 131 mL/min (>60); Estimated Creatinine Clearance 137.32 ml/min; Globulin 4.3 g/dL (2.2-4.2); Glucose 130 mg/dL (74-106); Potassium 4.3 mmol/L (3.5-5.1); Protein, Total 7.2 g/dL (6.4-8.2); Sodium Level 136 mmol/L (136-145)
[2024-08-09 09:15] VITALS: BP 132/78; PULSE 85; RESP 18; TEMP 36.7; O2SAT 96
[2024-08-09] MEDS: 0.9% Normal Saline (1000mL) 1,000 ML 15 ML IV (10:06)
[2024-08-09] MEDS: 0.9% Normal Saline (1000mL) 1,000 ML 60 ML IV (10:07)
[2024-08-09 11:00] VITALS: BP 124/69; PULSE 105; RESP 18; TEMP 37; O2SAT 94
--- NOTE | 2024-08-09 11:24 | PCM.PN.SRG ---
Subjective Subjective Patient without any significant complaints this morning. No nausea or vomiting. No fevers or chills. Pain is well-controlled. LINUS drain output has remained serosanguineous. No bilious drainage Objective Data Objective Data Vital Signs: Vital Signs Temp Pulse Resp BP Pulse Ox O2 Del Method O2 Flow Rate 98.6 F 105 H 18 124/69 H 94 Room Air 94 08/09/24 11:00 08/09/24 11:00 08/09/24 11:00 08/09/24 11:00 08/09/24 11:00 08/09/24 11:10 08/09/24 11:00 Oxygen Flow Rate (L/min) 94 Oxygen Delivery Method Room Air Weight: 208 lb Body Mass Index (BMI) 28.2 Intake & Output: Intake and Output for Last 24 Hours 08/07/24 08/08/24 08/09/24 23:59 23:59 23:59 Intake Total 176.75 / 176.75 1000 / 1000 Output Total 15 / 15 Balance 161.75 / 161.75 1000 / 1000 Lab / Micro Data 08/09/24 06:35 08/09/24 06:35 Labs: Laboratory Results - last 24 hr 08/08/24 10:52: Urine Opiates Screen NEGATIVE, Urine Methadone Screen NEGATIVE, Ur Barbiturates Screen NEGATIVE, Ur Phencyclidine Scrn NEGATIVE, Ur Amphetamines Screen NEGATIVE, MDMA (Ecstasy) Screen NEGATIVE, U Benzodiazepines Scrn NEGATIVE, Urine Cocaine Screen NEGATIVE, U Cannabinoids Screen POSITIVE H 08/09/24 06:35: WBC 15.9 H, RBC 3.84 L, Hgb 11.9 L, Hct 36.1 L, MCV 94.0, MCH 31.0, MCHC 33.0, RDW Std Deviation 44.7 H, RDW Coeff of Jenni 13.1, Plt Count 293, MPV 9.9, Immature Gran % (Auto) 0.300, Neut % (Auto) 86.3 H, Lymph % (Auto) 6.6 L, [place] % (Auto) 6.7, Eos % (Auto) 0.0, Baso % (Auto) 0.1, Absolute Neuts (auto) 13.7 H, Absolute Lymphs (auto) 1.05, Nucleated RBC % 0, Sodium 136, Potassium 4.3, Chloride 105, Carbon Dioxide 26.0, Anion Gap 5, BUN 8, Creatinine 0.81, Estim Creat Clear Calc 137.32, Est GFR (MDRD) Af Amer 131, Est GFR (MDRD) Non-Af 109, BUN/Creatinine Ratio 9.8 L, Glucose 130 H, Calcium 9.2, Total Bilirubin 0.60, AST 10 L, ALT 32, Alkaline Phosphatase 64, Total Protein 7.2, Albumin 2.9 L, Globulin 4.3 H, Albumin/Globulin Ratio 0.7 L Physical Exam Const oriented x3 and no apparent distress GI GI Narrative: Abdomen is soft and non-distended. Mild incisional tenderness to palpation. Dressings clean dry and intact. LINUS drain with serosanguineous drainage. No bilious drainage whatsoever. LINUS drain was removed without difficulty and patient tolerated this well Assessment & Plan Assessment/Plan (1) Acute cholecystitis due to biliary calculus: PLAN: Plan Patient is a 44-year-old male postoperative day #1 from a robotic assisted subtotal cholecystectomy. He is doing well postoperatively LINUS drain output has been fairly minimal and serosanguineous. This was removed today He is tolerating diet and pain is well-controlled. I am recommending discharge to home today Follow-up with Dr. Gonzales -he should call and schedule appointment if 1 is not already made A.m. labs were unremarkable
--- NOTE | 2024-08-09 11:28 | PCM.DC.SUM ---
Providers Date of Admission: 08/08/24 Date of Discharge: 08/09/24 Primary Care Physician: No Primary Care Phys Reason For Visit: Robotic Cholecystectomy w/grams Diagnosis Discharge Diagnosis (1) Acute cholecystitis due to biliary calculus: Status: Acute Code(s): K80.00 - Calculus of gallbladder with acute cholecystitis without obstruction Plan Patient is a 44-year-old male postoperative day #1 from a robotic assisted subtotal cholecystectomy. He is doing well postoperatively LINUS drain output has been fairly minimal and serosanguineous. This was removed today He is tolerating diet and pain is well-controlled. I am recommending discharge to home today Follow-up with Dr. Gonzales -he should call and schedule appointment if 1 is not already made A.m. labs were unremarkable Medications at Discharge Home Medications acetaminophen 325 mg tablet 650 mg (2 x 325 mg) PO Q4H PRN PRN Pain 1-10 Or Fever #0 tabs 08/08/24 oxycodone 5 mg tablet 5 - 10 mg (1 - 2 x 5 mg) PO Q4H PRN PRN Pain Score 4-10 5 days #20 tabs 08/08/24 Hospital Course Operations cholecystecomy Summary of Care Provided Minutes Spent on Discharge: 15 Hospital Course: Patient presented for an elective robotic cholecystectomy. He had had a previous cholecystostomy tube placed about a year ago for very acute cholecystitis. Surgery was performed. His gallbladder was quite contracted and very scarred in place. A subtotal cholecystectomy was performed successfully. Patient is doing well postoperatively. Pain is well-controlled. He is tolerating diet. LINUS drain output has been serosanguineous and nonbilious. Patient anticipates discharge later today Physical Exam Const alert, oriented x3 and no apparent distress Weight / BMI Weight Weight: 208 lb Body Mass Index (BMI) 28.2 ABG / Lab / Microbiology Data 08/09/24 06:35 08/09/24 06:35 Laboratory: Laboratory Results - last 24 hr 08/09/24 06:35: WBC 15.9 H, RBC 3.84 L, Hgb 11.9 L, Hct 36.1 L, MCV 94.0, MCH 31.0, MCHC 33.0, RDW Std Deviation 44.7 H, RDW Coeff of Jenni 13.1, Plt Count 293, MPV 9.9, Immature Gran % (Auto) 0.300, Neut % (Auto) 86.3 H, Lymph % (Auto) 6.6 L, [place] % (Auto) 6.7, Eos % (Auto) 0.0, Baso % (Auto) 0.1, Absolute Neuts (auto) 13.7 H, Absolute Lymphs (auto) 1.05, Nucleated RBC % 0, Sodium 136, Potassium 4.3, Chloride 105, Carbon Dioxide 26.0, Anion Gap 5, BUN 8, Creatinine 0.81, Estim Creat Clear Calc 137.32, Est GFR (MDRD) Af Amer 131, Est GFR (MDRD) Non-Af 109, BUN/Creatinine Ratio 9.8 L, Glucose 130 H, Calcium 9.2, Total Bilirubin 0.60, AST 10 L, ALT 32, Alkaline Phosphatase 64, Total Protein 7.2, Albumin 2.9 L, Globulin 4.3 H, Albumin/Globulin Ratio 0.7 L D/C Instructions Discharge Diet: Light diet - advance as tolerated May shower in (days): 1 Additional Activity Instructions: Pain medication may cause nausea. You should typically eat light foods as you take your pain medications. Pain medication may also cause constipation. If this is a problem for you, please discuss with your doctor. Call your doctor if your incision/area has: Continuous Slow Oozing, Sudden Increased Bleeding, Increased Pain/ Swelling, Increased Redness and Foul Smelling Discharge Call your doctor if you observe: Fever of 101 or Higher Suture Line Care: Avoid Pulling/Pushing and Avoid Pinching/Bending Additional Dressing/Incision Instructions: Leave operative bandaids on for 2 days. When you remove dressing, leave Steri-Strips on until your follow-up appointment, or until the Steri-Strips fall off on their own. DC O2, CPAP, BIPAP Needs Home O2 Discharge instructions: No Please Follow Up With: Morris Gonzales MD When: Please call to schedule 1 week follow up appointment. [phone] Meaningful Use Info Meaningful Use Meaningful Use Diagnoses (Choose all that apply): None applicable Ischemic Stroke Statin Dosing Therapy Reference: STATIN DOSE THERAPY REFERENCE: * Patients > 75 years receive moderate or high dose statin therapy. * Patients 75 years or YOUNGER should receive HIGH intensity statin dose unless contraindicated. You will be required to document reason for non-treatment if statin daily dose does not meet guidelines. HIGH DOSE STATIN THERAPY DAILY Atorvastatin > than or = to 40 mg Rosuvastatin > than or = to 20 mg Amlodipine + Atorvastatin > than or = to 2.5/40 mg Ezetimibe + Simvastatin 10/80 mg Simvastatin 80mg Discharge Plan Admission Admit Date/Time: 08/08/24 14:53 Primary Reason for Your Visit: Cholecystectomy Attending Provider: Morris Gonzales Primary Care Provider: Care Physician,No Primary Discharge Orders/Prescriptions Prescriptions: New acetaminophen 325 mg Tablet 650 mg PO Q4H PRN PRN (Reason: Pain 1-10 Or Fever) Qty: 0 0RF oxycodone 5 mg Tablet 5 - 10 mg PO Q4H PRN PRN (Reason: Pain Score 4-10) 5 Days Qty: 20 0RF Referrals / Follow Up: Care Physician,No Primary [Primary Care Provider] - Disposition Disposition (needs filled in before D/C Order can be placed): Home, Self Care
[2024-08-09 12:00] VITALS: BP 124/69; PULSE 105; RESP 16; TEMP 36.7; O2SAT 94
== END 2024-08-09 15:45 | disposition home or self-care (01) ==
LOC: SDC 15:10 → MS3 15:10
PROVIDERS: Anesthesiology; Admitting Provider Surgery; Visit Provider Surgery
PROC: 0FT44ZZ Resection of Gallbladder, Percutaneous Endoscopic Approach (ICD-10-PCS; CPT 47562; principal; 2024-08-08 12:15)
DX: K81.2 Acute cholecystitis with chronic cholecystitis (principal); J45.909 Unspecified asthma, uncomplicated; F17.210 Nicotine dependence, cigarettes, uncomplicated
CPT/HCPCS: 47562; S2900; 00790; 36415; 80053; 80307; 85025; 85027; 88304; 93005; 96374; 99221; A4216; G0378; J2405

== ENCOUNTER 2024-08-29 13:45 | Inpatient (IN) | payer MEDICAID, SELFPAY ==
[2024-08-29 13:46] VITALS: BP 128/92; PULSE 125; RESP 18; TEMP 37.2; O2SAT 95
[2024-08-29] MEDS: Ondansetron 4 MG/2 ML Vial IV (14:22)
[2024-08-29] MEDS: 0.9% Normal Saline (1000mL) 1,000 ML 999 ML IV (14:22)
[2024-08-29] MEDS: Morphine 4 MG/ML Syringe IV (14:22)
--- NOTE | 2024-08-29 14:35 | CT_ITS ---
PROCEDURE: ABDOMEN/PELVIS W IV CONT ONLY 08/29/2024 REASON FOR EXAM: PAIN, NAUSEA AND VOMITING Recent cholecystectomy. Substance and alcohol abuse. TECHNIQUE: Abdomen and pelvis CT with intravenous contrast. Coronal and Sagittal reconstruction series were provided. One or more dose reduction techniques were used (e.g., Automated exposure control, adjustment of the mA and/or kV according to patient size, use of iterative reconstruction technique. PATIENT PREPARATION: Per protocol ORAL CONTRAST TYPE: None. CONTRAST: Isovue-300 VOLUME: 100mL COMPARISON: None. FINDINGS: Lung bases: Mild dependent atelectasis. Minimal pleural thickening. Liver: Minimal central intrahepatic biliary ductal dilatation most likely secondary to recent cholecystectomy. Gallbladder: The patient is status post cholecystectomy. In the gallbladder fossa, there is some decreased attenuation with a small amount of fluid. There is thickening of the distal gastric antrum and 2nd portion of the duodenum suggestive of inflammatory process. Spleen: Normal size.. Scattered calcified splenic granulomas. Pancreas: Normal size without evidence of mass surrounding inflammation or ductal dilation. Adrenals: Unremarkable. Kidneys: Unremarkable Bladder: Unremarkable Small amount of free fluid in the pelvis. Bowel: Inflammatory changes in the region of the hepatic flexure and distal ascending colon most likely secondary to the inflammatory changes seen in the right gallbladder fossa.. Fluid distention of the stomach. Appendix: Unremarkable Lymph nodes: Unremarkable Vasculature: Unremarkable Peritoneum / Retroperitoneum: No evidence of retroperitoneal lymphadenopathy. Bones: Unremarkable CT/Abdomen/Pelvis W IV Cont ONLY IMPRESSION: Mild degree of bibasilar atelectasis with minimal pleural reaction. Status post cholecystectomy with a small amount of fluid and inflammatory corbin es in the gallbladder fossa with involvement of the distal gastric antrum as well as the 2nd portion of the duodenum in the hep atic flexure and distal ascending colon. Small amount of free fluid is seen in the pelvis. Reading Location: [facility]
[2024-08-29 14:52] LABS: ALB/GLOB Ratio 0.9 RATIO (0.9-2.4); AST(SGOT) 20 U/L (<=37); Alanine Aminotransfer ALT/SGPT 17 U/L (<=46); Albumin, Serum 4.3 g/dL (3.5-5.0); Alkaline Phosphatase 165 U/L (40-129); Anion Gap 19 (5-15); BUN 17 mg/dL (4-19); BUN/Creat Ratio 14.6 RATIO (10-20); Calcium,Total 10.5 mg/dL (7.6-11.0); Carbon Dioxide 34.6 mmol/L (21.0-32.0); Chloride 80 mmol/L (98-108); Creatinine, Serum 1.17 mg/dL (0.70-1.20); EST Glomerular Filtration Rate 78 (>60); Glucose 141 mg/dL (70-99); Lipase 25 U/L (13-75); Potassium 3.6 mmol/L (3.3-5.1); Protein, Total 9.3 g/dL (5.9-8.4); Sodium Level 134 mmol/L (133-145); Total Bilirubin 0.68 mg/dL (0.00-1.30)
[2024-08-29 14:57] LABS: Absolute Neutrophil Count 28.3 X10^3/uL (2.0-7.7); Basophil# 0.13 X10^3/uL; Basophil% 0.4 % (0-1); Eosinophil# 0.09 X10^3/uL; Eosinophils% 0.3 % (0-5); Hematocrit 44.8 % (40-54); Hemoglobin 15.3 g/dL (13.0-16.5); Lymphocyte % 6.3 % (19-41); Mean Corp Hgb Conc 34.2 g/dL (32-36); Mean Corpuscular Hgb 29.7 pg (27.0-32.0); Mean Corpuscular Volume 86.8 fL (80-94); Mean Platelet Vol. 10.1 fl (6.2-12.0); Monocyte# 2.11 X10^3/uL; Monocyte% 6.4 % (0-10); NRBC Flagged by Analyzer 0 % (0-5); Neutrophil # 28.28 X10^3/uL (2.7-7.7); Neutrophil % 85.3 % (47-70); POSITIVE COUNT YES; POSITIVE DIFFERENTIAL YES; Platelet Count 736 K/mm3 (150-450); RBC Distribution Width CV 13.3 % (11.6-14.6); RBC Distribution Width SD 42.4 fl (35.1-43.9); Red Blood Count 5.16 M/mm3 (4.6-6.2)
[2024-08-29 15:07] LABS: Differential Indicated SCAN CRITERIA MET
[2024-08-29 15:10] LABS: White Blood Count 33.1 K/mm3 (4.4-11.0)
--- NOTE | 2024-08-29 15:12 | ED.VIS.GI ---
HPI HPI - GI History of Present Illness Chief Complaint: Nausea/Vomiting Narrative Narrative: 44-year-old male who denies significant past medical history with the exception of recent cholecystectomy by Dr. Gonzales. He had this performed on August 08, almost 3 weeks ago. He states that he had been doing well until Sunday, approximately 4 days ago to 5 days ago when he started having pain in the epigastrium as well as nausea and vomiting. He presents with his mother who states that he had multiple episodes of nausea and vomiting which have lessened. Not sure that he has had fever or chills, but states he did not feel well starting then. No exacerbating or alleviating factors. PFSH PFSH Medical History Poor historian Broken teeth PTSD (post-traumatic stress disorder) Depression Substance abuse Marijuana use Alcohol use Migraine headache Injury of head and neck Asthma Smoker Home Medications ?Medication ?Instructions ?Recorded ?Last Taken ?Type acetaminophen 325 mg tablet 650 mg (2 x 325 mg) PO Q4H PRN PRN 08/08/24 Unknown Rx Pain 1-10 Or Fever #0 tabs oxycodone 5 mg tablet 5 - 10 mg (1 - 2 x 5 mg) PO Q4H 08/08/24 Unknown Rx PRN PRN Pain Score 4-10 5 days #20 tabs Allergy/AdvReac Type Severity Reaction Status Date / Time No Known Allergies Allergy Verified 08/29/24 13:46 Surgical History No history of previous surgery Social History housing: house Smoking Status: Current every day smoker tobacco type: cigarettes ROS ROS ED ROS Narrative Review of systems positive for generalized ill feeling. Positive abdominal pain. Multiple episodes of nausea and vomiting. No hematemesis. No exacerbating or alleviating factors. EXAM Physical Exam Narrative Exam Narrative: Afebrile. Vital signs noted. Flat affect. Cardiovascular examination reveals mild tachycardia. Lungs clear to auscultation bilaterally. Abdomen is soft with mild tenderness to palpation in the epigastrium and in the right lower quadrant as well. No guarding or rebound. No crepitance. Visual inspection does show healing laparoscopic cholecystectomy wounds without erythema. Neurological examination nonfocal, nonlateralizing. Const Vital Signs: 08/29/24 13:46 Temperature 98.9 F Temperature Source Oral Pulse Rate 125 H Respiratory Rate 18 Blood Pressure 128/92 H Blood Pressure Mean 104 Pulse Ox 95 Oxygen Delivery Method Room Air MDM MDM MDM Narrative Medical decision making narrative: Differential diagnosis includes but not limited to partial palsy obstruction versus pancreatitis versus diverticulitis versus acute appendicitis versus developing abscess. Comprehensive workup was pursued. Patient feels dehydrated and he was bolused normal saline. He was administered morphine and ondansetron. I reviewed his laboratory work and he has an elevated white count of 33.1 with hemoglobin 15.3, hematocrit 44.8, platelet count elevated at 736 which may be an acute phase reactant. Sodium normal at 134 with creatinine 3.6, glucose elevated at 141 with anion gap slightly elevated at 19. CO2 is high at 34.6. AST and ALT are normal at 20 and 17 respectively with alk phos slightly elevated at 165. Lipase normal at 25 so I doubt pancreatitis. I reviewed the radiology report which comments on bibasilar atelectasis. Additionally, the gallbladder fossa appears inflamed and involvement of the distal gastric antrum as well as the second portion of the duodenum and the distal ascending colon. There is a small amount of free fluid in the pelvis. As he has elevated white count and was tachycardic I added blood cultures as well as a lactic acid. I was going to page Dr. Rai on-call for general surgery, but Dr. Gonzales called in and requested NG tube placement, Zosyn, and admission to his service. He was able to review the lactic acid is normal at 1.1. Disposition is admit in stable condition. Of note, and she has not been placed as of yet, so there is no interpretation on KUB. History & Record Review Discussion w/independent historian: Patient and Family Lab Data Attestation: I reviewed the patient's lab results. Labs: Laboratory Results - last 24 hr 08/29/24 08/29/24 08/29/24 14:07 15:05 15:18 RBC 5.16 Hgb 15.3 Hct 44.8 MCV 86.8 MCH 29.7 MCHC 34.2 RDW Std Deviation 42.4 RDW Coeff of Jenni 13.3 Plt Count 736 H MPV 10.1 Immature Gran % (Auto) 1.300 H Neut % (Auto) 85.3 H Lymph % (Auto) 6.3 L [place] % (Auto) 6.4 Eos % (Auto) 0.3 Baso % (Auto) 0.4 Absolute Neuts (auto) 28.3 H Absolute Lymphs (auto) 2.10 Nucleated RBC % 0 Sodium 134 Potassium 3.6 Chloride 80 L Carbon Dioxide 34.6 H Anion Gap 19 H BUN 17 Creatinine 1.17 Est GFR (MDRD) Non-Af 78 BUN/Creatinine Ratio 14.6 Glucose 141 H Lactic Acid 1.1 Calcium 10.5 Total Bilirubin 0.68 AST 20 ALT 17 Alkaline Phosphatase 165 H Total Protein 9.3 H Albumin 4.3 Globulin 5.0 H Albumin/Globulin Ratio 0.9 Lipase 25 Urine Color Yellow Urine Clarity Clear Urine pH 6.0 Ur Specific [place] 1.020 Urine Protein 100 H Urine Glucose (UA) Normal Urine Ketones 150 A* Urine Occult Blood 25 H Urine Nitrite Negative Urine Bilirubin 1 H Urine Urobilinogen Normal Ur Leukocyte Esterase Negative Urine RBC 10-25 SEEN Urine WBC 5-10 SEEN Ur Squamous Epith Cells 0-5 SEEN Urine Bacteria 1+ Hyaline Casts 5-10 SEEN Urine Mucus 1+ Radiography Diagnostic Testing: Clinical Impression(s) from Imaging Studies Abdomen/Pelvis CT 08/29/24 14:35 IMPRESSION: Mild degree of bibasilar atelectasis with minimal pleural reaction. Status post cholecystectomy with a small amount of fluid and inflammatory changes in the gallbladder fossa with involvement of the distal gastric antrum as well as the 2nd portion of the duodenum in the hepatic flexure and distal ascending colon. Small amount of free fluid is seen in the pelvis. Reading Location: [facility]- Discharge Plan Dx/Rx/DC Orders Clinical Impression: Leukocytosis, Status post laparoscopic cholecystectomy, Nausea and vomiting, Gastric outlet obstruction Disposition Disposition: Acute Care Hospital [facility]
[2024-08-29 15:13] LABS: Glucose, Dipstick Normal (Normal); Leukocyte Esterase-Dipstick Negative /ul (Negative); Nitrite-Dipstick Negative (Negative); Occult Blood-Urine 25 /ul (Negative); Protein-Dipstick 100 mg/dl (Negative); Urine Clarity Clear (Clear); Urine Urobilinogen Normal (Normal)
[2024-08-29 15:19] LABS: Urine Bilirubin Dipstick 1 mg/dL (Negative)
[2024-08-29 15:21] LABS: Ketone-Dipstick 150 mg/dl (Negative)
[2024-08-29] MEDS: Piperacil/Tazobactam 3.375 GM in 0.9% Normal Saline (50mL MB+) 50 ML IV ×2 (15:35→20:26)
[2024-08-29 15:49] VITALS: BP 128/92; BP 137/79; PULSE 105; PULSE 125; RESP 18; TEMP 37.2; O2SAT 95; O2SAT 98
--- NOTE | 2024-08-29 15:50 | PCM.HP.STD ---
HPI - General HPI Narrative BRANDY KISER, is a 44 M who presents with nausea and vomiting. The patient had a laparoscopic partial cholecystectomy on 221. The patient reports he has been feeling better and better until this past Sunday 4 days ago. He reports that he started having nausea and vomiting. He also reports that he is having epigastric pain and burning in his esophagus. PFSH Medical History Poor historian Broken teeth PTSD (post-traumatic stress disorder) Depression Substance abuse Marijuana use Alcohol use Migraine headache Injury of head and neck Asthma Smoker Home Medications ?Medication ?Instructions ?Recorded ?Last Taken ?Type acetaminophen 325 mg tablet 650 mg (2 x 325 mg) PO Q4H PRN PRN 08/08/24 Unknown Rx Pain 1-10 Or Fever #0 tabs oxycodone 5 mg tablet 5 - 10 mg (1 - 2 x 5 mg) PO Q4H 08/08/24 Unknown Rx PRN PRN Pain Score 4-10 5 days #20 tabs Allergy/AdvReac Type Severity Reaction Status Date / Time No Known Allergies Allergy Verified 08/29/24 13:46 Surgical History No history of previous surgery Social History housing: house Smoking Status: Current every day smoker tobacco type: cigarettes Vital Signs Vital Signs Vital Signs: 08/29/24 13:46 08/29/24 15:49 Temperature 98.9 F 98.9 F Temperature Source Oral Pulse Rate 125 H 125 H Respiratory Rate 18 18 Blood Pressure 128/92 H 128/92 H Blood Pressure Mean 104 104 Pulse Ox 95 95 Oxygen Delivery Method Room Air Physical Exam Const oriented x3 and no apparent distress Resp normal respiratory effort Cardio regular rhythm Rate: tachycardic GI soft to palpation Inspection: Negative for abdominal distention Palpation: tender Extremity normal to inspection Results Lab / Micro Data 08/29/24 14:07 08/29/24 14:07 Labs: Laboratory Results - last 24 hr 08/29/24 14:07: RBC 5.16, Hgb 15.3, Hct 44.8, MCV 86.8, MCH 29.7, MCHC 34.2, RDW Std Deviation 42.4, RDW Coeff of Jenni 13.3, Plt Count 736 H, MPV 10.1, Immature Gran % (Auto) 1.300 H, Neut % (Auto) 85.3 H, Lymph % (Auto) 6.3 L, [place] % (Auto) 6.4, Eos % (Auto) 0.3, Baso % (Auto) 0.4, Absolute Neuts (auto) 28.3 H, Absolute Lymphs (auto) 2.10, Nucleated RBC % 0, Sodium 134, Potassium 3.6, Chloride 80 L, Carbon Dioxide 34.6 H, Anion Gap 19 H, BUN 17, Creatinine 1.17, Est GFR (MDRD) Non-Af 78, BUN/Creatinine Ratio 14.6, Glucose 141 H, Calcium 10.5, Total Bilirubin 0.68, AST 20, ALT 17, Alkaline Phosphatase 165 H, Total Protein 9.3 H, Albumin 4.3, Globulin 5.0 H, Albumin/Globulin Ratio 0.9, Lipase 25 Imaging Radiology Impression Abdomen/Pelvis CT 08/29/24 14:35 IMPRESSION: Mild degree of bibasilar atelectasis with minimal pleural reaction. Status post cholecystectomy with a small amount of fluid and inflammatory changes in the gallbladder fossa with involvement of the distal gastric antrum as well as the 2nd portion of the duodenum in the hepatic flexure and distal ascending colon. Small amount of free fluid is seen in the pelvis. Reading Location: [facility]-IR-1 Assessment & Plan Assessment/Plan (1) Gastric outlet obstruction: PLAN: The patient had severe inflammation and had a partial cholecystectomy 3 weeks ago as I could not reach the infundibulum. The patient is currently having right upper quadrant pain and nausea and vomiting. He had a CT scan which revealed gastric distention and the small bowel did not appear distended. There is inflammation in the right upper quadrant near the gallbladder fossa that is involving the duodenum and the hepatic flexure of the colon. There is also some mild fluid in the pelvis. I am concern for possible bile leak as the patient had a partial cholecystectomy. I will place an NG and start him on a PPI and antibiotics and order HIDA. If HIDA is positive the patient will need ERCP with stent. Morris Gonzales MD Pager: [facility] [address] [place] [address], [address] [place] [phone] Office:
[2024-08-29 16:00] LABS: Lactic Acid 1.1 mmol/L (0.0-2.0)
[2024-08-29 16:06] LABS: Color, Urine Yellow (Yellow); Red Blood Cells-Urine 10-25 SEEN /hpf (0-5)
[2024-08-29 16:07] LABS: Bacteria 1+ /hpf (None Seen); Hyaline Cast 5-10 SEEN /lpf (0-5); Mucous, Urine 1+ /hpf (<or=2+); Squamous Epithelial Cells - UA 0-5 SEEN /hpf (0-5); White Blood Cells 5-10 SEEN /hpf (0-5)
[2024-08-29] MEDS: 0.9% Normal Saline (1000mL) 1,000 ML 100 ML IV ×2 (16:46→18:24)
--- NOTE | 2024-08-29 16:50 | RAD_ITS ---
PROCEDURE: ABDOMEN SINGLE VIEW (PORTABLE) REASON FOR EXAM: NG INSERTION TECHNIQUE: Single view abdomen. COMPARISON: None FINDINGS: NG tube, with the side port below the diaphragm and the tip of the proximal gastric body. Bowel gas pattern is normal. No evidence of bowel obstruction. No suspicious calcifications. Contrast noted within the proximal bilateral renal collecting systems. The bones are unremarkable. RAD/Abdomen Single View (Portable) IMPRESSION: No acute findings. Reading Location: [facility]
[2024-08-29 17:12] LABS: Anisocytosis 1+; Atypical Lymphocyte 1+ %; Platelet Morphology LARGE; Reactive Lymphocyte RARE; Toxic Granulation 1+
[2024-08-29 17:13] LABS: Pathologist Review May foll
[2024-08-29 17:41] VITALS: BMI 25.4
[2024-08-29 17:50] VITALS: BMI 25.4
[2024-08-29 17:54] VITALS: BP 144/90; PULSE 96; RESP 16; TEMP 36.5; O2SAT 95
[2024-08-29] MEDS: Morphine 2 MG/ML Syringe IV ×2 (18:25→20:26)
[2024-08-29 20:29] VITALS: BP 147/83; PULSE 105; RESP 18; TEMP 37.2; O2SAT 100
[2024-08-30 01:39] VITALS: BP 143/87; PULSE 101; RESP 18; TEMP 37.2; O2SAT 94
[2024-08-30] MEDS: Morphine 2 MG/ML Syringe IV ×4 (01:41→14:06)
[2024-08-30] MEDS: 0.9% Normal Saline (1000mL) 1,000 ML 100 ML IV ×3 (01:41→20:50)
[2024-08-30] MEDS: Piperacil/Tazobactam 3.375 GM in 0.9% Normal Saline (50mL MB+) 50 ML IV ×3 (06:41→20:50)
--- NOTE | 2024-08-30 07:00 | NM_ITS ---
PROCEDURE: HEPATOBILLIARY IMAGING REASON FOR EXAM: RUQ PAIN, POSSIBLE BILE LEAK, recent cholecystectomy TECHNIQUE: Intravenous Choletec with planar imaging of the abdomen. RADIOPHARMACEUTICAL: 5.8 mCi of mebrofenin COMPARISON: 08/29/2024 FINDINGS: There is good uptake of the radiopharmaceutical by the liver. Normal excretion through the common bile duct into the proximal small bowel. No definite evidence of extraluminal radiotracer to suggest bile leak. NM/Hepatobilliary Imaging IMPRESSION: No evidence of bile leak. Reading Location: [facility]
[2024-08-30 07:19] LABS: Absolute Lymphocyte Count 1.88 X10^3/uL (0.83-4.51); Absolute Neutrophil Count 19.5 X10^3/uL (2.0-7.7); Basophil# 0.09 X10^3/uL; Basophil% 0.4 % (0-1); Eosinophil# 0.24 X10^3/uL; Hematocrit 36.4 % (40-54); Hemoglobin 12.3 g/dL (13.0-16.5); Lymphocyte # 1.88 X10^3/ul (0.83-4.51); Lymphocyte % 7.9 % (19-41); Mean Corp Hgb Conc 33.8 g/dL (32-36); Mean Corpuscular Hgb 29.8 pg (27.0-32.0); Mean Corpuscular Volume 88.1 fL (80-94); Mean Platelet Vol. 9.5 fl (6.2-12.0); Monocyte# 1.91 X10^3/uL; NRBC Flagged by Analyzer 0 % (0-5); Neutrophil # 19.47 X10^3/uL (2.7-7.7); Neutrophil % 81.6 % (47-70); POSITIVE DIFFERENTIAL YES; Platelet Count 543 K/mm3 (150-450); RBC Distribution Width CV 13.5 % (11.6-14.6); RBC Distribution Width SD 43.7 fl (35.1-43.9); Red Blood Count 4.13 M/mm3 (4.6-6.2); White Blood Count 23.9 K/mm3 (4.4-11.0)
[2024-08-30 08:27] LABS: Differential Indicated SCAN CRITERIA MET
[2024-08-30 09:30] VITALS: BP 131/81; PULSE 90; RESP 16; TEMP 36.7; O2SAT 95
[2024-08-30 09:36] LABS: ALB/GLOB Ratio 0.8 RATIO (0.9-2.4); AST(SGOT) 9 U/L (<=37); Alanine Aminotransfer ALT/SGPT 12 U/L (<=46); Albumin, Serum 3.3 g/dL (3.5-5.0); Alkaline Phosphatase 94 U/L (40-129); Anion Gap 14 (5-15); BUN 11 mg/dL (4-19); BUN/Creat Ratio 15.9 RATIO (10-20); Calcium,Total 8.9 mg/dL (7.6-11.0); Carbon Dioxide 28.4 mmol/L (21.0-32.0); Chloride 93 mmol/L (98-108); Creatinine, Serum 0.68 mg/dL (0.70-1.20); EST Glomerular Filtration Rate 117 (>60); Estimated Creatinine Clearance 150.57 ml/min (50-250); Globulin 3.9 g/dL (2.2-4.2); Glucose 110 mg/dL (70-99); Potassium 3.4 mmol/L (3.3-5.1); Protein, Total 7.3 g/dL (5.9-8.4); Sodium Level 135 mmol/L (133-145); Total Bilirubin 0.38 mg/dL (0.00-1.30)
[2024-08-30 09:43] LABS: Platelet Estimate SLT INC (ADEQ); Polychromasia 1+
--- NOTE | 2024-08-30 10:10 | PCM.PN.SRG ---
Subjective Subjective Patient seen and examined on rounds this morning. Patient's biggest complaint is throat discomfort secondary to NG tube. He denies any significant nausea or vomiting at present. HIDA scan was negative for any obvious evidence of bile leak. White blood cell count 24 but is decreased from [address] yesterday showed evidence of gastric outlet obstruction along with inflammation of the stomach, duodenum, and region of hepatic flexure. Patient states that for the past week he has been having burning epigastric pain which raises concern for possible gastritis and/or ulcer. Patient denies any burning epigastric pain at present and states that this has improved since admission. Patient is on PPI IV currently along with antibiotics. Per RN, patient has not had a bowel movement in several days. Vital signs have been stable and afebrile Objective Data Objective Data Vital Signs: Vital Signs Temp Pulse Resp BP Pulse Ox O2 Del Method 98.1 F 90 16 131/81 H 95 Room Air 08/30/24 09:30 08/30/24 09:30 08/30/24 09:30 08/30/24 09:30 08/30/24 09:30 08/30/24 09:30 Oxygen Delivery Method Room Air Weight: 187 lb 8 oz Body Mass Index (BMI) 25.4 Intake & Output: Intake and Output for Last 24 Hours 08/28/24 08/29/24 08/30/24 23:59 23:59 23:59 Intake Total 1213.33 / 1213.33 808.33 / 808.33 Output Total 300 / 300 Balance 1213.33 / 1213.33 508.33 / 508.33 Lab / Micro Data 08/30/24 07:03 08/30/24 07:03 Labs: Laboratory Results - last 24 hr 08/29/24 14:07: WBC 33.1 H*, RBC 5.16, Hgb 15.3, Hct 44.8, MCV 86.8, MCH 29.7, MCHC 34.2, RDW Std Deviation 42.4, RDW Coeff of Jenni 13.3, Plt Count 736 H, MPV 10.1, Immature Gran % (Auto) 1.300 H, Neut % (Auto) 85.3 H, Lymph % (Auto) 6.3 L, [place] % (Auto) 6.4, Eos % (Auto) 0.3, Baso % (Auto) 0.4, Absolute Neuts (auto) 28.3 H, Absolute Lymphs (auto) 2.10, Nucleated RBC % 0, Diff Path Review May foll, Atypical Lymphocytes 1+, Reactive Lymphocytes RARE, Toxic Granulation 1+, Plt Morphology Comment LARGE, Anisocytosis 1+, Sodium 134, Potassium 3.6, Chloride 80 L, Carbon Dioxide 34.6 H, Anion Gap 19 H, BUN 17, Creatinine 1.17, Est GFR (MDRD) Non-Af 78, BUN/Creatinine Ratio 14.6, Glucose 141 H, Calcium 10.5, Total Bilirubin 0.68, AST 20, ALT 17, Alkaline Phosphatase 165 H, Total Protein 9.3 H, Albumin 4.3, Globulin 5.0 H, Albumin/Globulin Ratio 0.9, Lipase 25 08/29/24 15:05: Urine Color Yellow, Urine Clarity Clear, Urine pH 6.0, Ur Specific [place] 1.020, Urine Protein 100 H, Urine Glucose (UA) Normal, Urine Ketones 150 A*, Urine Occult Blood 25 H, Urine Nitrite Negative, Urine Bilirubin 1 H, Urine Urobilinogen Normal, Ur Leukocyte Esterase Negative, Urine RBC 10-25 SEEN, Urine WBC 5-10 SEEN, Ur Squamous Epith Cells 0-5 SEEN, Urine Bacteria 1+, Hyaline Casts 5-10 SEEN, Urine Mucus 1+ 08/29/24 15:18: Lactic Acid 1.1 08/30/24 07:03: WBC 23.9 H, RBC 4.13 L, Hgb 12.3 L, Hct 36.4 L, MCV 88.1, MCH 29.8, MCHC 33.8, RDW Std Deviation 43.7, RDW Coeff of Jenni 13.5, Plt Count 543 H, MPV 9.5, Immature Gran % (Auto) 1.100 H, Neut % (Auto) 81.6 H, Lymph % (Auto) 7.9 L, [place] % (Auto) 8.0, Eos % (Auto) 1.0, Baso % (Auto) 0.4, Absolute Neuts (auto) 19.5 H, Absolute Lymphs (auto) 1.88, Nucleated RBC % 0, Platelet Estimate [employer], Polychromasia 1+, Sodium 135, Potassium 3.4, Chloride 93 L, Carbon Dioxide 28.4, Anion Gap 14, BUN 11, Creatinine 0.68 L, Estim Creat Clear Calc 150.57, Est GFR (MDRD) Non-Af 117, BUN/Creatinine Ratio 15.9, Glucose 110 H, Calcium 8.9, Total Bilirubin 0.38, AST 9, ALT 12, Alkaline Phosphatase 94, Total Protein 7.3, Albumin 3.3 L, Globulin 3.9, Albumin/Globulin Ratio 0.8 L Radiography Diagnostic Testing: Radiology Impression Abdomen/Pelvis CT 08/29/24 14:35 IMPRESSION: Mild degree of bibasilar atelectasis with minimal pleural reaction. Status post cholecystectomy with a small amount of fluid and inflammatory changes in the gallbladder fossa with involvement of the distal gastric antrum as well as the 2nd portion of the duodenum in the hepatic flexure and distal ascending colon. Small amount of free fluid is seen in the pelvis. Reading Location: [facility]-1 KUB X-Ray 08/29/24 16:50 IMPRESSION: No acute findings. Reading Location: [facility] Hepatobiliary Scan Nuclear Medicine 08/30/24 07:00 IMPRESSION: No evidence of bile leak. Reading Location: [facility] Physical Exam Narrative Patient is alert and oriented x 3. He is in no acute distress. Nasogastric tube is in place. This seems to be causing him visible discomfort as he is very hesitant to even talk. Abdomen is soft, nontender and nondistended. Assessment & Plan Assessment/Plan (1) Gastric outlet obstruction: PLAN: The patient is a 44-year-old male status post a subtotal cholecystectomy about 3 weeks ago. Patient presented yesterday to the emergency room with epigastric pain along with nausea and vomiting for the past week. Imaging seems to indicate gastric outlet obstruction along with inflammatory changes in the right upper quadrant. HIDA scan was negative for leak. Patient is currently on antibiotics for his leukocytosis which seems to be improving although his white blood cell count is still elevated at 23. Patient is also on IV PPI for possible gastritis/ulcer. Will continue NG to low intermittent suction and keep n.p.o. for now. Will add Cepacol spray to help with discomfort secondary to NG tube. Will add medication to stimulate bowel movement. All questions and concerns were addressed -patient agreeable to this plan. Also discussed plan with RN as well (2) Nausea and vomiting: (3) Status post laparoscopic cholecystectomy: (4) Leukocytosis:
[2024-08-30] MEDS: Phenol/Sodium Phenolate 180ML 3 SPRAY MUCOUS MEM (10:30)
[2024-08-30 11:50] VITALS: BP 132/88; PULSE 87; RESP 16; TEMP 36.7; O2SAT 94
[2024-08-30] MEDS: Pantoprazole Sodium 40 MG in 0.9% Normal Saline (100mL MB+) 100 ML 330 MG IV (12:44)
--- NOTE | 2024-08-30 14:20 | NURSING ---
pt had not had bm since 08/27. dr garcia notified supp ordered. pt refused supp. pt stated he is not eating anything to have bm. pt has not voided since last night. asked pt if he had to void. and offered to assist pt to bathroom. pt stated he does not have to void. pt stated it is because he is dehydrated. explained to pt that iv fluids are running at 100cc/hr, and he should be producing urine. continued to educate pt that by not voiding it could harm his kidneys. explained that nursing could bladder scan him to see if his bladder is retaining urine and a reese could be inserted to drain bladder if there is retained urine. pt became angry and stated lets not jump to conclusions. he is dehydrated and does not need to void. he also stated that the ng is draining all the fluid and not allowing his body to produce urine. nursing explained that the ng is not draining much, only 140cc have been drained in the past 8 hours. nursing told pt that when he is ready to get up and go to bathroom to call for assistance and we would help him to bathroom. dr garcia notified of pt refusing care.
[2024-08-30 15:41] VITALS: BP 133/80; PULSE 83; RESP 16; TEMP 36.8; O2SAT 96
--- NOTE | 2024-08-30 16:15 | CASEMGMT ---
TAZ JOHNSON Assessment: Face to Face with pt for initial transition planning/care coordination assessment. TAZ JOHNSON introduced self and role at [facility], pt voices understanding and consents to assessment. Pt is A&O x4 and answers all questions appropriately at this time. Pt lying in bed in no distress. Care providers, pharmacy, and demographics verified/updated. Strata: 1 Admitting Dx: N/V PCP: No PCP Specialists: Denies Preferred Pharmacy: [facility] Insurance: [employer] Prescription Benefit: yes LNOK: MomLara Living Arrangements: Pt lives with parents in a 2 story home with no steps to enter. ADLs: Pt reports I at baseline Transportation: Pt drives self and denies concerns with transportation. DME: Shower chair, cane HHC/SNF:Denies Hx of. Pt states no concerns with going home at time of dc. Pt denies using drugs or alcohol. Pt states he uses tobacco, not interested in cessation programs at this time. Pt states no further concerns/needs. CM to follow. Advised pt to ask CM if any further question/concerns/needs arise, voices understanding. Pt Goal: Home Plan: Home with family support. Follow for safe DC. Jose MCGHEE CM
[2024-08-30 20:42] VITALS: BP 131/84; PULSE 96; RESP 18; TEMP 37.4; O2SAT 97
[2024-08-30 22:38] LABS: Pathologist Review May foll
[2024-08-31 04:02] VITALS: BP 130/81; PULSE 91; RESP 18; TEMP 37.2; O2SAT 94
[2024-08-31] MEDS: Morphine 2 MG/ML Syringe IV ×4 (04:12→22:33)
[2024-08-31] MEDS: 0.9% Normal Saline (1000mL) 1,000 ML 100 ML IV ×2 (06:38→17:04)
[2024-08-31] MEDS: Piperacil/Tazobactam 3.375 GM in 0.9% Normal Saline (50mL MB+) 50 ML IV ×3 (06:38→22:00)
[2024-08-31 06:41] LABS: Absolute Lymphocyte Count 2.45 X10^3/uL (0.83-4.51); Absolute Neutrophil Count 11.3 X10^3/uL (2.0-7.7); Basophil# 0.12 X10^3/uL; Basophil% 0.8 % (0-1); Eosinophil# 0.55 X10^3/uL; Eosinophils% 3.5 % (0-5); Hematocrit 33.4 % (40-54); Hemoglobin 10.9 g/dL (13.0-16.5); Lymphocyte # 2.45 X10^3/ul (0.83-4.51); Lymphocyte % 15.4 % (19-41); Mean Corp Hgb Conc 32.6 g/dL (32-36); Mean Corpuscular Hgb 29.6 pg (27.0-32.0); Mean Corpuscular Volume 90.8 fL (80-94); Mean Platelet Vol. 9.6 fl (6.2-12.0); Monocyte# 1.21 X10^3/uL; Monocyte% 7.6 % (0-10); NRBC Flagged by Analyzer 0 % (0-5); Neutrophil # 11.29 X10^3/uL (2.7-7.7); Platelet Count 495 K/mm3 (150-450); RBC Distribution Width CV 13.5 % (11.6-14.6); RBC Distribution Width SD 45.2 fl (35.1-43.9); Red Blood Count 3.68 M/mm3 (4.6-6.2); White Blood Count 15.9 K/mm3 (4.4-11.0)
[2024-08-31 07:09] LABS: ALB/GLOB Ratio 0.8 RATIO (0.9-2.4); AST(SGOT) 14 U/L (<=37); Alanine Aminotransfer ALT/SGPT 15 U/L (<=46); Albumin, Serum 3.1 g/dL (3.5-5.0); Alkaline Phosphatase 93 U/L (40-129); Anion Gap 14 (5-15); BUN 10 mg/dL (4-19); BUN/Creat Ratio 15.1 RATIO (10-20); Calcium,Total 8.5 mg/dL (7.6-11.0); Carbon Dioxide 24.2 mmol/L (21.0-32.0); Chloride 98 mmol/L (98-108); Creatinine, Serum 0.69 mg/dL (0.70-1.20); EST Glomerular Filtration Rate 116 (>60); Estimated Creatinine Clearance 148.39 ml/min (50-250); Globulin 3.8 g/dL (2.2-4.2); Glucose 86 mg/dL (70-99); Potassium 3.5 mmol/L (3.3-5.1); Protein, Total 6.8 g/dL (5.9-8.4); Sodium Level 137 mmol/L (133-145)
[2024-08-31 08:13] VITALS: BP 124/78; PULSE 94; RESP 16; TEMP 36.7; O2SAT 98
[2024-08-31] MEDS: Pantoprazole Sodium 40 MG in 0.9% Normal Saline (100mL MB+) 100 ML 330 MG IV (10:30)
[2024-08-31 11:18] VITALS: BP 127/83; PULSE 89; RESP 16; TEMP 36.7; O2SAT 98
--- NOTE | 2024-08-31 12:39 | PN.SURG_ITS ---
Subjective Subjective Patient seen and evaluated on rounds this morning. He denies any new issues or complaints. Still complains of throat discomfort secondary to NG tube. Patient with documented bowel movements. Objective Data Objective Data Vital Signs: Vital Signs Temp Pulse Resp BP Pulse Ox O2 Del Method 98.1 F 89 16 127/83 H 98 Room Air 08/31/24 11:18 08/31/24 11:18 08/31/24 11:18 08/31/24 11:18 08/31/24 11:18 08/31/24 11:18 Oxygen Delivery Method Room Air Weight: 187 lb 8.015 oz Body Mass Index (BMI) 25.4 Intake & Output: Intake and Output for Last 24 Hours 08/29/24 08/30/24 08/31/24 23:59 23:59 23:59 Intake Total 1213.33 / 1213.33 2890.00 / 2890.00 1638.33 / 1638.33 Output Total 550 / 550 950 / 950 Balance 1213.33 / 1213.33 2340.00 / 2340.00 688.33 / 688.33 Lab / Micro Data 08/31/24 06:23 08/31/24 06:23 Labs: Laboratory Results - last 24 hr 08/30/24 07:03: Diff Path Review October08/31/24 06:23: WBC 15.9 H, RBC 3.68 L, Hgb 10.9 L, Hct 33.4 L, MCV 90.8, MCH 29.6, MCHC 32.6, RDW Std Deviation 45.2 H, RDW Coeff of Jenni 13.5, Plt Count 495 H, MPV 9.6, Immature Gran % (Auto) 1.700 H, Neut % (Auto) 71.0 H, Lymph % (Auto) 15.4 L, [place] % (Auto) 7.6, Eos % (Auto) 3.5, Baso % (Auto) 0.8, Absolute Neuts (auto) 11.3 H, Absolute Lymphs (auto) 2.45, Nucleated RBC % 0, Sodium 137, Potassium 3.5, Chloride 98, Carbon Dioxide 24.2, Anion Gap 14, BUN 10, C reatinine 0.69 L, Estim Creat Clear Calc 148.39, Est GFR (MDRD) Non-Af 116, BUN/Creatinine Ratio 15.1, Glucose 86, Calcium 8.5, Total Bilirubin 0.30, AST 14, ALT 15, Alkaline Phosphatase 93, Total Protein 6.8, Albumin 3.1 L, Globulin 3.8, Albumin/Globulin Ratio 0.8 L Physical Exam Narrative He is awake and alert. Patient does not speak much likely secondary to NG tube discomfort. He does not appear to be in acute distress. Abdomen is soft, nontender and nondistended. Assessment & Plan Assessment/Plan (1) Gastric outlet obstruction: (2) Nausea and vomiting: (3) Status post laparoscopic cholecystectomy: (4) Leukocytosis: PLAN: Plan Patient is status post a robotic subtotal cholecystectomy about 3 weeks ago. Patient has developed gastric outlet obstruction with symptoms of nausea and vomiting. CT scan showing inflammation involving the stomach and duodenum. Patient described some epigastric burning discomfort for about a week prior to admission. Patient is on antibiotics as well as PPIs. Would recommend continuing these as well as n.p.o. and NG tube decompression. If he continues to improve, could consider a trial of liquids but would prefer to wait till tomorrow to give additional time for the stomach to decompress. Patient denies any questions or concerns. Charges/Coding Visit Charges Inpatient E&M: 69697 Subs Hosp L2
[2024-08-31 15:11] VITALS: BP 133/88; PULSE 89; RESP 16; TEMP 36.6; O2SAT 96
[2024-08-31 21:52] VITALS: BP 136/79; PULSE 79; RESP 18; TEMP 37.7; O2SAT 97
[2024-08-31] MEDS: 0.9% Saline Lock 10 ML Syringe IV (22:34)
[2024-08-31] MEDS: 0.9% Normal Saline (100mL Bag) 100 ML 15 ML IV (23:02)
[2024-09-01 03:46] VITALS: BP 142/82; PULSE 82; RESP 16; TEMP 37; O2SAT 97
[2024-09-01] MEDS: Piperacil/Tazobactam 3.375 GM in 0.9% Normal Saline (50mL MB+) 50 ML IV ×3 (06:26→21:40)
[2024-09-01 08:20] VITALS: BP 137/84; PULSE 90; RESP 18; TEMP 36.2; O2SAT 97
--- NOTE | 2024-09-01 08:39 | RAD_ITS ---
PROCEDURE: UPPER GI SINGLE CONTRAST 09/01/2024 REASON FOR EXAM: GASTRIC OUTLET OBSTRUCTION TECHNIQUE: FLUOROSCOPIC TIME: 55 seconds minutes FLUOROGRAPHIC IMAGES: 4 COMPARISON: None. FINDINGS: 120 mL of a combination of water and Gastrografin was introduced through the indwelling nasogastric tube.. There is no evidence of gastric outlet obstruction. 45 minutes following the introduction of the Gastrografin, contrast is seen within the small bowel as well as right hemicolon. RAD/Upper GI Single Contrast IMPRESSION: No evidence of gastric outlet obstruction. Reading Location: [facility]
--- NOTE | 2024-09-01 08:41 | PCM.PN.BLA ---
Assessment & Plan Assessment/Plan (1) Gastric outlet obstruction: PLAN: Patient had gastric outlet obstruction after partial cholecystectomy. The CT scan revealed inflammation in the right upper quadrant. He has been on antibiotics for 2 days and his white count is decreasing. He is feeling better with no abdominal pain. His abdomen is soft and nontender. I will order an upper GI today to see if he is still having gastric outlet obstruction and as long as the contrast reaches the small intestine I will remove the NG and start clear liquids. Continue antibiotics. Continue PPI. Morris Gonzales MD Pager: [facility] [address] [place] [address], [address] [place] [address] Office:
[2024-09-01] MEDS: Pantoprazole Sodium 40 MG in 0.9% Normal Saline (100mL MB+) 100 ML 330 MG IV (12:13)
--- NOTE | 2024-09-01 13:22 | NURSING ---
NG tube removed at 1310 on 09/01/[address] orders. Pt on clear liquid diet at this time
[2024-09-01] MEDS: 0.9% Normal Saline (1000mL) 1,000 ML 100 ML IV ×2 (13:42→23:49)
[2024-09-01 14:45] VITALS: BP 138/73; PULSE 85; RESP 18; TEMP 36; O2SAT 100
[2024-09-01 21:44] VITALS: BP 138/86; PULSE 65; RESP 18; TEMP 36.7; O2SAT 95
[2024-09-02 03:26] VITALS: BP 130/82; PULSE 72; RESP 16; TEMP 36.8; O2SAT 97
[2024-09-02 06:31] LABS: Absolute Lymphocyte Count 2.03 X10^3/uL (0.83-4.51); Absolute Neutrophil Count 7.5 X10^3/uL (2.0-7.7); Basophil% 0.9 % (0-1); Eosinophil# 0.48 X10^3/uL; Eosinophils% 4.3 % (0-5); Hematocrit 32.4 % (40-54); Hemoglobin 10.7 g/dL (13.0-16.5); Lymphocyte # 2.03 X10^3/ul (0.83-4.51); Mean Corpuscular Hgb 28.9 pg (27.0-32.0); Mean Corpuscular Volume 87.6 fL (80-94); Mean Platelet Vol. 9.4 fl (6.2-12.0); Monocyte# 0.89 X10^3/uL; Monocyte% 7.9 % (0-10); NRBC Flagged by Analyzer 0 % (0-5); Neutrophil # 7.49 X10^3/uL (2.7-7.7); Neutrophil % 66.5 % (47-70); Platelet Count 480 K/mm3 (150-450); RBC Distribution Width CV 13.3 % (11.6-14.6); RBC Distribution Width SD 42.9 fl (35.1-43.9); White Blood Count 11.3 K/mm3 (4.4-11.0)
[2024-09-02 07:02] LABS: Anion Gap 10 (5-15); BUN 4 mg/dL (4-19); BUN/Creat Ratio 6.9 RATIO (10-20); Calcium,Total 8.5 mg/dL (7.6-11.0); Carbon Dioxide 23.7 mmol/L (21.0-32.0); Chloride 104 mmol/L (98-108); Creatinine, Serum 0.58 mg/dL (0.70-1.20); EST Glomerular Filtration Rate 123 (>60); Estimated Creatinine Clearance 176.53 ml/min (50-250); Glucose 96 mg/dL (70-99); Potassium 3.2 mmol/L (3.3-5.1); Sodium Level 137 mmol/L (133-145)
[2024-09-02] MEDS: Potassium Chloride Oral Tablet 20 MEQ 60 MEQ PO (08:21)
[2024-09-02 08:30] VITALS: BP 118/78; PULSE 63; RESP 16; TEMP 36.6; O2SAT 97
--- NOTE | 2024-09-02 09:12 | PCM.PN.SRG ---
Subjective Subjective Patient is evaluated resting comfortably in bed. He notes the symptoms he came into the hospital with are completely resolved. He states he is tolerating clear liquids well. He notes passing flatus and having bowel movements, which are loose. He denies any nausea, vomiting or pain. Objective Data Objective Data Vital Signs: Vital Signs Temp Pulse Resp BP Pulse Ox O2 Del Method 97.8 F 63 16 118/78 97 Room Air 09/02/24 08:30 09/02/24 08:30 09/02/24 08:30 09/02/24 08:30 09/02/24 08:30 09/02/24 08:30 Oxygen Delivery Method Room Air Weight: 187 lb 8.015 oz Body Mass Index (BMI) 25.4 Intake & Output: Intake and Output for Last 24 Hours 08/31/24 09/01/24 09/02/24 23:59 23:59 23:59 Intake Total 2328.33 / 2328.33 2309.5 / 2309.5 50 / 50 Output Total 1150 / 1150 350 / 350 Balance 1178.33 / 1178.33 1959.5 / 1959.5 50 / 50 Lab / Micro Data 09/02/24 05:54 09/02/24 05:54 Labs: Laboratory Results - last 24 hr 09/02/24 05:54: WBC 11.3 H, RBC 3.70 L, Hgb 10.7 L, Hct 32.4 L, MCV 87.6, MCH 28.9, MCHC 33.0, RDW Std Deviation 42.9, RDW Coeff of Jenni 13.3, Plt Count 480 H, MPV 9.4, Immature Gran % (Auto) 2.400 H, Neut % (Auto) 66.5, Lymph % (Auto) 18.0 L, [place] % (Auto) 7.9, Eos % (Auto) 4.3, Baso % (Auto) 0.9, Absolute Neuts (auto) 7.5, Absolute Lymphs (auto) 2.03, Nucleated RBC % 0, Sodium 137, Potassium 3.2 L, Chloride 104, Carbon Dioxide 23.7, Anion Gap 10, BUN 4, Creatinine 0.58 L, Estim Creat Clear Calc 176.53, Est GFR (MDRD) Non-Af 123, BUN/Creatinine Ratio 6.9 L, Glucose 96, Calcium 8.5 Micro: Microbiology 08/29/24 15:45 Blood Culture (Wb) - Anticubital Right Blood Culture - Preliminary No growth in 48 hours. 08/29/24 15:18 Blood Culture (Wb) - Anticubital Right Blood Culture - Preliminary No growth in 48 hours. Radiography Diagnostic Testing: Radiology Impression Upper GI Series 09/01/24 08:39 IMPRESSION: No evidence of gastric outlet obstruction. Reading Location: [facility] Physical Exam GI GI Narrative: Abdomen- soft, slight tenderness in the epigastric region Assessment & Plan Assessment/Plan (1) Nausea and vomiting: QUALIFIERS: Vomiting type: unspecified Qualified Code(s): R11.2 - Nausea with vomiting, unspecified (2) Status post laparoscopic cholecystectomy: (3) Leukocytosis: QUALIFIERS: Leukocytosis type: unspecified Qualified Code(s): D72.829 - Elevated white blood cell count, unspecified PLAN: Plan I am following this patient in conjunction with Dr. Juarez. She will independently evaluate this patient. Labs reviewed. WBC decreasing Increase diet to full liquids Will switch patient over to an oral PPI If tolerate diet without nausea/vomiting, hopeful discharge later today or tomorrow We will continue to monitor this patient Charges/Coding Visit Charges Inpatient E&M: 84709 [facility] L1
[2024-09-02 10:35] VITALS: RESP 16; O2SAT 97
[2024-09-02] MEDS: Pantoprazole Sodium 40 MG Tablet PO (10:48)
[2024-09-02 15:02] VITALS: BP 120/76; PULSE 72; RESP 16; TEMP 36.6; O2SAT 97
[2024-09-02] MEDS: 0.9% Normal Saline (1000mL) 1,000 ML 100 ML IV ×2 (15:07→23:16)
[2024-09-02] MEDS: Piperacil/Tazobactam 3.375 GM in 0.9% Normal Saline (50mL MB+) 50 ML IV ×2 (15:53→23:10)
[2024-09-02 16:25] VITALS: BMI 25.4
[2024-09-02 19:59] VITALS: BP 108/77; PULSE 75; RESP 16; TEMP 36.7; O2SAT 99
[2024-09-02] MEDS: 0.9% Saline Lock 10 ML Syringe IV (23:17)
[2024-09-02 23:18] VITALS: BP 112/61; PULSE 72; RESP 16; TEMP 36.7; O2SAT 98
[2024-09-03 03:42] VITALS: BMI 25.4
[2024-09-03 05:39] VITALS: BP 123/82; PULSE 61; RESP 16; TEMP 36.4; O2SAT 100
[2024-09-03] MEDS: Piperacil/Tazobactam 3.375 GM in 0.9% Normal Saline (50mL MB+) 50 ML IV (05:43)
[2024-09-03 07:00] LABS: Absolute Lymphocyte Count 2.83 X10^3/uL (0.83-4.51); Absolute Neutrophil Count 3.8 X10^3/uL (2.0-7.7); Basophil# 0.11 X10^3/uL; Basophil% 1.4 % (0-1); Eosinophil# 0.42 X10^3/uL; Eosinophils% 5.2 % (0-5); Hematocrit 31.9 % (40-54); Hemoglobin 10.6 g/dL (13.0-16.5); Lymphocyte # 2.83 X10^3/ul (0.83-4.51); Lymphocyte % 34.9 % (19-41); Mean Corp Hgb Conc 33.2 g/dL (32-36); Mean Corpuscular Hgb 29.6 pg (27.0-32.0); Mean Corpuscular Volume 89.1 fL (80-94); Mean Platelet Vol. 9.3 fl (6.2-12.0); Monocyte# 0.57 X10^3/uL; NRBC Flagged by Analyzer 0 % (0-5); Neutrophil % 46.8 % (47-70); Platelet Count 463 K/mm3 (150-450); RBC Distribution Width CV 13.5 % (11.6-14.6); RBC Distribution Width SD 44.2 fl (35.1-43.9); Red Blood Count 3.58 M/mm3 (4.6-6.2); White Blood Count 8.1 K/mm3 (4.4-11.0)
[2024-09-03 07:32] LABS: ALB/GLOB Ratio 0.8 RATIO (0.9-2.4); AST(SGOT) 13 U/L (<=37); Alanine Aminotransfer ALT/SGPT 14 U/L (<=46); Albumin, Serum 2.9 g/dL (3.5-5.0); Alkaline Phosphatase 73 U/L (40-129); Anion Gap 9 (5-15); BUN 3 mg/dL (4-19); BUN/Creat Ratio 3.9 RATIO (10-20); Calcium,Total 8.5 mg/dL (7.6-11.0); Carbon Dioxide 23.3 mmol/L (21.0-32.0); Chloride 107 mmol/L (98-108); Creatinine, Serum 0.74 mg/dL (0.70-1.20); EST Glomerular Filtration Rate 114 (>60); Estimated Creatinine Clearance 138.36 ml/min (50-250); Globulin 3.6 g/dL (2.2-4.2); Glucose 96 mg/dL (70-99); Potassium 3.7 mmol/L (3.3-5.1); Protein, Total 6.5 g/dL (5.9-8.4); Sodium Level 139 mmol/L (133-145); Total Bilirubin 0.19 mg/dL (0.00-1.30)
[2024-09-03 08:07] VITALS: BP 128/83; PULSE 60; RESP 16; TEMP 36.6; O2SAT 98
--- NOTE | 2024-09-03 08:11 | PCM.DC.SUM ---
Providers Date of Admission: 08/29/24 Primary Care Physician: No Primary Care Phys Reason For Visit: NAUSEA AND VOMITING Diagnosis Discharge Diagnosis (1) Nausea and vomiting: Status: Acute Code(s): R11.2 - Nausea with vomiting, unspecified Qualifiers: Vomiting type: unspecified Qualified Code(s): R11.2 - Nausea with vomiting, unspecified (2) Status post laparoscopic cholecystectomy: Status: Acute Code(s): Z90.49 - Acquired absence of other specified parts of digestive tract (3) Leukocytosis: Status: Acute Code(s): D72.829 - Elevated white blood cell count, unspecified Qualifiers: Leukocytosis type: unspecified Qualified Code(s): D72.829 - Elevated white blood cell count, unspecified Medications at Discharge Home Medications oxycodone 5 mg tablet 5 - 10 mg (1 - 2 x 5 mg) PO Q4H PRN PRN Pain Score 4-10 5 days #20 tabs 08/08/24 ciprofloxacin HCl 500 mg tablet (Cipro) 500 mg PO BID 7 days #14 tabs 09/03/24 metronidazole 500 mg tablet 500 mg PO Q8H 7 days #21 tabs 09/03/24 Hospital Course Operations None Procedures None Summary of Care Provided Hospital Course: Patient was admitted with abdominal pain. CT scan revealed gastric outlet obstruction with inflammation in the right upper quadrant near the gallbladder fossa. He was admitted and NG tube was placed. He had a HIDA scan which did not show any biliary leak. He was kept on antibiotics and his NG was then removed 2 days later and he was started on a diet which he tolerated. He will be discharged home on oral antibiotics. Follow-up in 1 week. Weight / BMI Weight Weight: 187 lb 9.814 oz Body Mass Index (BMI) 25.4 ABG / Lab / Microbiology Data 09/03/24 06:46 09/03/24 06:46 Laboratory: Laboratory Results - last 24 hr 09/03/24 06:46: WBC 8.1, RBC 3.58 L, Hgb 10.6 L, Hct 31.9 L, MCV 89.1, MCH 29.6, MCHC 33.2, RDW Std Deviation 44.2 H, RDW Coeff of Jenni 13.5, Plt Count 463 H, MPV 9.3, Immature Gran % (Auto) 4.700 H, Neut % (Auto) 46.8 L, Lymph % (Auto) 34.9, [place] % (Auto) 7.0, Eos % (Auto) 5.2 H, Baso % (Auto) 1.4 H, Absolute Neuts (auto) 3.8, Absolute Lymphs (auto) 2.83, Nucleated RBC % 0, Sodium 139, Potassium 3.7, Chloride 107, Carbon Dioxide 23.3, Anion Gap 9, BUN 3 L, Creatinine 0.74, Estim Creat Clear Calc 138.36, Est GFR (MDRD) Non-Af 114, BUN/Creatinine Ratio 3.9 L, Glucose 96, Calcium 8.5, Total Bilirubin 0.19, AST 13, ALT 14, Alkaline Phosphatase 73, Total Protein 6.5, Albumin 2.9 L, Globulin 3.6, Albumin/Globulin Ratio 0.8 L Microbiology: Microbiology 08/29/24 15:45 Blood Culture (Wb) - Anticubital Right Blood Culture - Preliminary No growth in 48 hours. 08/29/24 15:18 Blood Culture (Wb) - Anticubital Right Blood Culture - Preliminary No growth in 48 hours. D/C Instructions Discharge Diet: Light diet - advance as tolerated Discharge Activity: Return to Normal Activity Weight Bearing Status: Weight bearing as tolerated Call your doctor if your incision/area has: Continuous Slow Oozing, Sudden Increased Bleeding, Increased Redness and Foul Smelling Discharge Call your doctor if you observe: Fever of 101 or Higher and Inability to have a bowel movement DC O2, CPAP, BIPAP Needs Home O2 Discharge instructions: No Please Follow Up With: Morris Gonzales MD When: Please call to schedule 1 week follow up appointment. [phone] Meaningful Use Info Meaningful Use Meaningful Use Diagnoses (Choose all that apply): None applicable Ischemic Stroke Statin Dosing Therapy Reference: STATIN DOSE THERAPY REFERENCE: * Patients > 75 years receive moderate or high dose statin therapy. * Patients 75 years or YOUNGER should receive HIGH intensity statin dose unless contraindicated. You will be required to document reason for non-treatment if statin daily dose does not meet guidelines. HIGH DOSE STATIN THERAPY DAILY Atorvastatin > than or = to 40 mg Rosuvastatin > than or = to 20 mg Amlodipine + Atorvastatin > than or = to 2.5/40 mg Ezetimibe + Simvastatin 10/80 mg Simvastatin 80mg Discharge Plan Admission Admit Date/Time: 08/29/24 15:21 Attending Provider: Morris Gonzales Primary Care Provider: Care Physician,No Primary Discharge Orders/Prescriptions Prescriptions: New ciprofloxacin HCl [Cipro] 500 mg tablet 500 mg PO BID 7 Days Qty: 14 0RF metronidazole 500 mg tablet 500 mg PO Q8H 7 Days Qty: 21 0RF Continued oxycodone 5 mg Tablet 5 - 10 mg PO Q4H PRN PRN (Reason: Pain Score 4-10) 5 Days Qty: 20 0RF Referrals / Follow Up: Care Physician,No Primary [Primary Care Provider] - Disposition Disposition (needs filled in before D/C Order can be placed): Home, Self Care
--- NOTE | 2024-09-03 08:55 | CASEMGMT ---
TAZ CM into pt room, pt sitting up in bed. Pt denies any homegoing needs. Provided pt with a local healthcare provider directory. Pt states he is able to set up his own appt and denies need for assistance with this.
--- NOTE | 2024-09-03 09:05 | PN.SURG_ITS ---
Subjective Subjective Patient evaluated resting comfortably in bed. He denies any abdominal pain, nausea or vomiting. He notes overall feeling improved. He continues to pass flatus and have bowel movements. Objective Data Objective Data Vital Signs: Vital Signs Temp Pulse Resp BP Pulse Ox O2 Del Method 97.9 F 60 16 128/83 H 98 Room Air 09/03/24 08:07 09/03/24 08:07 09/03/24 08:07 09/03/24 08:07 09/03/24 08:07 09/03/24 08:07 Oxygen Delivery Method Room Air Weight: 187 lb 9.814 oz Body Mass Index (BMI) 25.4 Intake & Output: Intake and Output for Last 24 Hours 09/01/24 09/02/24 09/03/24 23:59 23:59 23:59 Intake Total 2309.5 / 2309.5 1914 / 1914 50 / 50 Output Total 350 / 350 Balance 1959.5 / 1959.5 1914 50 / 50 Medical Nutrition Assessment Dietitian: Malnutrition Criteria Met Start: 09/03/24 09:04 Freq: Status: Active Protocol: Document 09/03/24 09:04 SB (Rec: 09/03/24 09:04 SB [id number]) Nutrition Malnutrition Evidence of Yes Malnutrition Exists Malnutrition (severe Acute Illness/Injury ): Evidenced By Suboptimal Energy Intake (Moderate),Weight Loss (Severe ) Intake Problem Inadequate Oral Intake Etiology related to GI dysfunction Signs/Symptoms as evidenced by PO meeting <50% of estimated nutrition needs x 1 week. Status Active Problem Clinical Problem Acute Disease or Injury Related Malnutrition Etiology severe related to inadequate oral intake Signs/Symptoms as evidenced by PO meeting <50% of estimated nutrition needs x 1 week and 5% unintentional weight loss x 3 weeks. Status Active Problem Recommendation Dietitian Recommend advanced diet as tolerated to regular. Recommendations/ Refuses ONS at this time. Changes Will monitor weight trends. Lab / Micro Data 09/03/24 06:46 09/03/24 06:46 Labs: Laboratory Results - last 24 hr 09/03/24 06:46: WBC 8.1, RBC 3.58 L, Hgb 10.6 L, Hct 31.9 L, MCV 89.1, MCH 29.6, MCHC 33.2, RDW Std Deviation 44.2 H, RDW Coeff of Jenni 13.5, Plt Count 463 H, MPV 9.3, Immature Gran % (Auto) 4.700 H, Neut % (Auto) 46.8 L, Lymph % (Auto) 34.9, [place] % (Auto) 7.0, Eos % (Auto) 5.2 H, Baso % (Auto) 1.4 H, Absolute Neuts (auto) 3.8, Absolute Lymphs (auto) 2.83, Nucleated RBC % 0, Sodium 139, Potassium 3.7, Chloride 107, Carbon Dioxide 23.3, Anion Gap 9, BUN 3 L, Creatinine 0.74, Estim Creat Clear Calc 138.36, Est GFR (MDRD) Non-Af 114, B UN/Creatinine Ratio 3.9 L, Glucose 96, Calcium 8.5, Total Bilirubin 0.19, AST 13, ALT 14, Alkaline Phosphatase 73, Total Protein 6.5, Albumin 2.9 L, Globulin 3.6, Albumin/Globulin Ratio 0.8 L Micro: Microbiology 08/29/24 15:45 Blood Culture (Wb) - Anticubital Right Blood Culture - Preliminary No growth in 48 hours. 08/29/24 15:18 Blood Culture (Wb) - Anticubital Right Blood Culture - Preliminary No growth in 48 hours. Physical Exam GI GI Narrative: Abdomen- soft, nontender Assessment & Plan Assessment/Plan (1) Nausea and vomiting: QUALIFIERS: Vomiting type: unspecified Qualified Code(s): R11.2 - Nausea with vomiting, unspecified (2) Status post laparoscopic cholecystectomy: (3) Leukocytosis: QUALIFIERS: Leukocytosis type: unspecified Qualified Code(s): D 72.829 - Elevated white blood cell count, unspecified PLAN: Plan I am following this patient in conjunction with Dr. Gonzales. Labs reviewed. WBC is 8.1. Remaining labs unremarkable Patient seems overall improved Patient will be discharged to home on oral antibiotics Ready for discharge Charges/Coding Visit Charges Inpatient E&M: [id number] [facility] Hosp L1
--- NOTE | 2024-09-03 10:47 | PHA.DC_ITS ---
Pharmacy [facility] has performed discharge medication reconciliation and counseling for this patient. 1. AUGMENTIN 500/125MG PO Q12 X 7 DAYS The patient's discharge medication list was reviewed for discrepancies and discrepancies were resolved. The patient was counseled on the following discharge medications and changes in medications for homegoing were reviewed. The Reason for Use, instructions for use, and potential side effects were reviewed for all new medications. The patient's questions regarding all of their medications were answered. The patient was able to verbally demonstrate an understanding of their discharge medications. Medications at Discharge Home Medications oxycodone 5 mg tablet 5 - 10 mg (1 - 2 x 5 mg) PO Q4H PRN PRN Pain Score 4-10 5 days #20 tabs 08/08/24 amoxicillin 500 mg-potassium clavulanate 125 mg tablet (Augmentin) 1 tab PO Q12H 7 days #14 tabs 09/03/24
== END 2024-09-03 11:20 | disposition home or self-care (01) | DRG 392 ==
LOC: ED 15:24 → MS3 16:06
PROVIDERS: Physician Assistant; Admitting Provider Surgery; Emergency Provider Emergency Medicine; Referring Provider Surgery; Visit Provider Surgery
DX: R11.2 Nausea with vomiting, unspecified (principal); K31.1 Adult hypertrophic pyloric stenosis; J45.909 Unspecified asthma, uncomplicated; K29.80 Duodenitis without bleeding; K29.70 Gastritis, unspecified, without bleeding; D72.829 Elevated white blood cell count, unspecified; F17.210 Nicotine dependence, cigarettes, uncomplicated; Z79.891 Long term (current) use of opiate analgesic; Z90.49 Acquired absence of other specified parts of digestive tract; Z79.2 Long term (current) use of antibiotics
CPT/HCPCS: 36415; 74018; 74177; 74240; 78226; 80048; 80053; 81001; 83605; 83690; 85025; 87040; 97802; 99284; A9537; Q9967; A4216; J2405